=== PATIENT | female | born 1940 | race Caucasian/White ===

== ENCOUNTER 2019-10-07 15:19 | Emergency (ER) | payer MEDICARE, SELFPAY ==
[2019-10-07 15:28] VITALS: BP 148/65; PULSE 91; RESP 18; TEMP 36.8; O2SAT 98; BMI 31.8
--- NOTE | 2019-10-07 16:12 | ED_ITS ---
HPI - Extremity Problem <RYLAN Almaguer - Last Filed: 10/07/19 19:14> General Chief complaint: Extremity Problem,Nontraumatic Stated complaint: Cellulitis of legs Time Seen by Provider: 10/07/19 16:02 Source: patient and family Mode of arrival: Ambulatory Limitations: no limitations History of Present Illness HPI Narrative: The patient is a 78-year-old female nonsmoker with history of cellulitis, hepatitis-C, HCC, status post TACE who presents with a chief complaint of likely cellulitis. She is a nonsmoker presenting with her daughter. She states that she was recently in a hospital in [place] for over a week for cellulitis of her right lower leg. She states that she lives in [place], has been in town visiting her daughter. She does note that the redness starting coming back over the few days with some muscle aches and chills. No fevers. No nausea or vomiting. She states that she was on IV antibiotics and then discharged on other antibiotics. She is not sure what she was on. She is not sure what medication she takes. She knows she is not currently taking any antibiotics. She does state that she does not want to be admitted to the hospital, just wants oral antibiotics. She is adamant regarding this. Related Data Previous Rx's Medication Instructions Recorded cephalexin 500 mg PO QID 10 Days #40 cap 10/07/19 doxycycline hyclate 100 mg PO BID #20 cap 10/07/19 Allergies Allergy/AdvReac Type Severity Reaction Status Date / Time No Known Drug Allergies Allergy Verified 10/07/19 15:28 Review of Systems <RYLAN Almaguer - Last Filed: 10/07/19 19:14> Review of Systems Narrative: GENERAL: Denies chills, fatigue, malaise, fever, sweats. HEENT: Denies sinus pain, ear pain, sore throat, difficulty swallowing, dizziness. RESPIRATORY: Denies dyspnea, cough, wheezing, hemoptysis, sputum. CARDIOVASCULAR: Denies chest pain, palpitations, orthopnea, edema, GASTROINTESTINAL: Denies nausea, vomiting, abdominal pain, diarrhea, constipation, melena. : Denies dysuria, frequency, incontinence, hematuria, urinary retention. MUSCULOSKELETAL: See HPI SKIN: See HPI NEUROLOGIC: Denies weakness, headache, numbness, change in speech, confusion, seizures, incoordination. PSYCHIATRIC: No concerning psychosocial issues. 12 point review of systems is negative except for those stated above Patient History <RYLAN Almgauer - Last Filed: 10/07/19 19:14> Social History Smoking Status: Never smoker Smoking Status: Never smoker Substance Use Type: does not use Exam <RYLAN Almaguer - Last Filed: 10/07/19 19:14> Narrative Exam Narrative: GENERAL: This is a well-nourished, well-developed patient, in no acute distress HEAD: Atraumatic. Normocephalic. No temporal or scalp tenderness. EYES: Pupils equal round and reactive. Extraocular motions intact. No scleral icterus. No injection or drainage. ENT: Nose without bleeding, purulent drainage or septal hematoma. Wearing a mask. Airway patent. NECK: Trachea midline. No JVD or lymphadenopathy. Supple, nontender, no meningeal signs. CARDIOVASCULAR: Regular rate and rhythm. RESPIRATORY: Coarse to auscultation. Breath sounds equal bilaterally. No wheezes, rales, or rhonchi. GASTROINTESTINAL: Abdomen soft, non-tender, nondistended. No hepato- splenomegaly, or palpable masses. No guarding. EXTREMITIES: Skin exam as noted. Right pedal pulses intact. Plus two bilateral feet pitting edema. BACK: Nontender without deformity or crepitance. No flank tenderness. NEURO: AOx3. SKIN: Erythema extending up right lower leg to just distal to right knee, warmth to palpation. Initial Vital Signs Initial Vital Signs: Vital Signs Temperature 98.2 F 10/07/19 15:28 Pulse Rate 91 H 10/07/19 15:28 Respiratory Rate 18 10/07/19 15:28 Blood Pressure 148/65 H 10/07/19 15:28 Pulse Oximetry 98 10/07/19 15:28 <Radha Vitale MD - Last Filed: 10/08/19 08:33> Initial Vital Signs Initial Vital Signs: Vital Signs Temperature 98.2 F 10/07/19 15:28 Pulse Rate 91 H 10/07/19 15:28 Respiratory Rate 18 10/07/19 15:28 Blood Pressure 148/65 H 10/07/19 15:28 Pulse Oximetry 98 10/07/19 15:28 Scores <RYLAN Almaguer - Last Filed: 10/07/19 19:14> GCS [place] coma scale eye opening: Spontaneous Anshul coma scale verbal response: Orientated Anshul coma scale motor response: Obey commands Anshul coma scale total score: 15 Course <EVER Almaguer- - Last Filed: 10/07/19 19:14> Orders Ordered: Discontinued Medications Sodium Chloride (Normal Saline 0.9%) 1,000 mls @ 250 mls/hr IV CONT [facility] Last Admin: 10/07/19 16:44 Dose: 250 mls/hr Documented by: CVANCE Ceftriaxone Sodium/Dextrose (Rocephin) 2 gm in 50 mls @ 100 mls/hr IV NOW ONE Stop: 10/07/19 18:26 Last Admin: 10/07/19 18:18 Dose: 100 mls/hr Documented by: CVANCE Morphine Sulfate (Morphine) 4 mg IV NOW ONE Stop: 10/07/19 16:13 Last Admin: 10/07/19 16:45 Dose: 4 mg Documented by: CVANCE Ondansetron HCl (Zofran) 4 mg IV NOW ONE Stop: 10/07/19 16:13 Last Admin: 10/07/19 16:44 Dose: 4 mg Documented by: CVANCE Vital Signs Vital signs: Vital Signs - 8 hr 10/07/19 15:28 10/07/19 18:00 Temperature 98.2 F Pulse Rate 91 H Respiratory Rate 18 Blood Pressure 148/65 H 120/59 L Pulse Oximetry 98 96 <Radha Vitale MD - Last Filed: 10/08/19 08:33> Orders Ordered: Discontinued Medications Sodium Chloride (Normal Saline 0.9%) 1,000 mls @ 250 mls/hr IV CONT [facility] Last Admin: 10/07/19 16:44 Dose: 250 mls/hr Documented by: CVANCE Ceftriaxone Sodium/Dextrose (Rocephin) 2 gm in 50 mls @ 100 mls/hr IV NOW ONE Stop: 10/07/19 18:26 Last Admin: 10/07/19 18:18 Dose: 100 mls/hr Documented by: CVANCE Morphine Sulfate (Morphine) 4 mg IV NOW ONE Stop: 10/07/19 16:13 Last Admin: 10/07/19 16:45 Dose: 4 mg Documented by: CVANCE Ondansetron HCl (Zofran) 4 mg IV NOW ONE Stop: 10/07/19 16:13 Last Admin: 10/07/19 16:44 Dose: 4 mg Documented by: CVANCE Vital Signs Vital signs: Vital Signs - 8 hr 10/07/19 15:28 10/07/19 18:00 Temperature 98.2 F Pulse Rate 91 H Respiratory Rate 18 Blood Pressure 148/65 H 120/59 L Pulse Oximetry 98 96 MDM - Extremity (Nontraumatic) <BELKIS AlmaguerP- - Last Filed: 10/07/19 19:14> Lab Data Attestation: I reviewed the patient's lab results. Result diagrams: 10/07/19 16:29 10/07/19 16:29 Labs: Lab Results 10/07/19 10/07/19 10/07/19 Range/Units 16:29 16:29 16:29 WBC 6.0 (4.5-11.0) X10^3/uL RBC 3.66 L (4.0-5.2) X10^6/uL Hgb 10.8 L (12.0-16.0) g/dL Hct 32.8 L (36-46) % MCV 89.5 (80-100) fL MCH 29.4 (26-34) PG MCHC 32.9 (30-36) % RDW 15.1 H (11.6-14.8) % Plt Count 82 L (150-400) X10^3/uL Neut % (Auto) 74.0 (50-75) % Lymph % (Auto) 13.5 L (25-40) % [place] % (Auto) 11.4 (3-14) % Eos % (Auto) 0.7 L (2-4) % Baso % (Auto) 0.4 (0-2) % Neut # (Auto) 4400 (6848-6845) /uL Lymph # (Auto) 800 L (4219-7559) /uL [place] # (Auto) 700 (0-900) /uL Eos # (Auto) 0 (0-450) /uL Baso # (Auto) 0 (0-100) /uL PT 15.1 H (10.1-12.7) SECONDS INR 1.3 (0.9-1.3) APTT 33 (26.4-36.2) SECONDS Sodium (137-145) mmol/L Potassium (3.4-5.1) mmol/L Chloride (98-107) mmol/L Carbon Dioxide (22-32) mmol/L BUN (7-17) mg/dL Creatinine (0.52-1.04) mg/dL Estimated GFR (>60) mL/min BUN/Creatinine Ratio (6-22) Glucose (80-110) mg/dL Lactate (0.7-2.1) mmol/L Calcium (8.4-10.2) mg/dL Magnesium (1.6-2.3) mg/dL Total Bilirubin (0.2-1.3) mg/dL AST (14-36) IU/L ALT (<35) IU/L Alkaline Phosphatase (38-126) U/L Total Protein (6.3-8.2) g/dL Albumin (3.5-5.0) g/dL Globulin (1.7-4.1) g/dL Albumin/Globulin Ratio (1.0-2.8) Procalcitonin < 0.05 (<0.5) ng/mL 10/07/19 10/07/19 Range/Units 16:29 16:29 WBC (4.5-11.0) X10^3/uL RBC (4.0-5.2) X10^6/uL Hgb (12.0-16.0) g/dL Hct (36-46) % MCV (80-100) fL MCH (26-34) PG MCHC (30-36) % RDW (11.6-14.8) % Plt Count (150-400) X10^3/uL Neut % (Auto) (50-75) % Lymph % (Auto) (25-40) % [place] % (Auto) (3-14) % Eos % (Auto) (2-4) % Baso % (Auto) (0-2) % Neut # (Auto) (0177-5748) /uL Lymph # (Auto) (0851-9251) /uL [place] # (Auto) (0-900) /uL Eos # (Auto) (0-450) /uL Baso # (Auto) (0-100) /uL PT (10.1-12.7) SECONDS INR (0.9-1.3) APTT (26.4-36.2) SECONDS Sodium 135 L (137-145) mmol/L Potassium 3.9 (3.4-5.1) mmol/L Chloride 102 (98-107) mmol/L Carbon Dioxide 24 (22-32) mmol/L BUN 26 H (7-17) mg/dL Creatinine 1.12 H (0.52-1.04) mg/dL Estimated GFR 46.9 L (>60) mL/min BUN/Creatinine Ratio 23.2 H (6-22) Glucose 104 (80-110) mg/dL Lactate 1.4 (0.7-2.1) mmol/L Calcium 8.7 (8.4-10.2) mg/dL Magnesium 1.6 (1.6-2.3) mg/dL Total Bilirubin 1.3 (0.2-1.3) mg/dL AST 33 (14-36) IU/L ALT 20 (<35) IU/L Alkaline Phosphatase 109 (38-126) U/L Total Protein 6.8 (6.3-8.2) g/dL Albumin 3.6 (3.5-5.0) g/dL Globulin 3.2 (1.7-4.1) g/dL Albumin/Globulin Ratio 1.1 (1.0-2.8) Procalcitonin (<0.5) ng/mL Imaging Data US - DVT: Radiologist's Impression: [address] [place] [id number] Ultrasound Report Signed Patient: Viji Templeton#: [id number] : 1940Acct:[id number] Age/Sex: 78 / FDate of Service: 10/07/19 Loc: ED Accession Number: [id number] Procedure: US periph venous low extrem rt Ordering Provider: Kandace Cortez PROCEDURE: US PERIPH VENOUS LOW EXTREM RT INDICATIONS: pain, swelling, erythema TECHNIQUE: Real-time imaging, as well as color and pulse Doppler interrogation, were performed of the lower extremity deep veins from the inguinal ligament to the popliteal fossa. COMPARISON: None. FINDINGS: The common femoral, femoral and popliteal veins are normally compressible, and free of intraluminal thrombus. Color and pulse Doppler demonstrate normal phasic intraluminal flow. There is normal augmentation response to distal compression maneuver. IMPRESSION: No DVT in the right lower extremity. Dictated by: Valentina Ellis M.D. on 10/07/2019 at 17:35 Approved by: Valentina Ellis M.D. on 10/07/2019 at 17:36 MDM Narrative Medical decision making narrative: The patient is a 78-year-old female who presents with a chief complaint of a red painful right lower leg. She was recently admitted to a hospital in [place] for cellulitis. She denies any signs of systemic illness, though admits that she was on an IV antibiotics for over a week and is concerned about recurrence of cellulitis. It is concerning especially given that she was a currently septic upon arrival to the previous hospital. Given her immobility, I did do an ultrasound to rule out DVT in the skin negative. She has no acute signs of systemic illness, is afebrile in the emergency department, normal lactate, negative procalcitonin. However it is very concerning as the patient has recently been on several IV antibiotics for prolonged period and is already having recurrence of her infection. The patient presents with her daughter and she is adamant about not coming into the hospital. I did discuss that she is at high risk of decompensation, and that I recommended she come into the hospital for further IV antibiotics. The patient adamantly declined this, and signed out against medical advice. I did discuss with her and ROSANGELA Donovan was witness that she is at high risk of decompensation, organ failure, subsequent especially given her multiple comorbidities. The patient is understanding of this, states she will come back to the emergency department for any acute concerns including fever, no believe down fluids or antibiotics. She was given IV Rocephin and started on cephalexin and doxycycline in the emergency department today. The patient left against medical advice but states she will come back if she gets worse. The patient has full understanding of my desire to admit her, as well as her risk of leaving against medical advice. The patient is GCS 15 throughout her stay in the emergency department. <Radha Vitale MD - Last Filed: 10/08/19 08:33> Lab Data Labs: Lab Results 10/07/19 10/07/19 10/07/19 Range/Units 16:29 16:29 16:29 WBC 6.0 (4.5-11.0) X10^3/uL RBC 3.66 L (4.0-5.2) X10^6/uL Hgb 10.8 L (12.0-16.0) g/dL Hct 32.8 L (36-46) % MCV 89.5 (80-100) fL MCH 29.4 (26-34) PG MCHC 32.9 (30-36) % RDW 15.1 H (11.6-14.8) % Plt Count 82 L (150-400) X10^3/uL Neut % (Auto) 74.0 (50-75) % Lymph % (Auto) 13.5 L (25-40) % [place] % (Auto) 11.4 (3-14) % Eos % (Auto) 0.7 L (2-4) % Baso % (Auto) 0.4 (0-2) % Neut # (Auto) 4400 (1843-2556) /uL Lymph # (Auto) 800 L (3925-4499) /uL [place] # (Auto) 700 (0-900) /uL Eos # (Auto) 0 (0-450) /uL Baso # (Auto) 0 (0-100) /uL PT 15.1 H (10.1-12.7) SECONDS INR 1.3 (0.9-1.3) APTT 33 (26.4-36.2) SECONDS Sodium (137-145) mmol/L Potassium (3.4-5.1) mmol/L Chloride (98-107) mmol/L Carbon Dioxide (22-32) mmol/L BUN (7-17) mg/dL Creatinine (0.52-1.04) mg/dL Estimated GFR (>60) mL/min BUN/Creatinine Ratio (6-22) Glucose (80-110) mg/dL Lactate (0.7-2.1) mmol/L Calcium (8.4-10.2) mg/dL Magnesium (1.6-2.3) mg/dL Total Bilirubin (0.2-1.3) mg/dL AST (14-36) IU/L ALT (<35) IU/L Alkaline Phosphatase (38-126) U/L Total Protein (6.3-8.2) g/dL Albumin (3.5-5.0) g/dL Globulin (1.7-4.1) g/dL Albumin/Globulin Ratio (1.0-2.8) Procalcitonin < 0.05 (<0.5) ng/mL 10/07/19 10/07/19 Range/Units 16:29 16:29 WBC (4.5-11.0) X10^3/uL RBC (4.0-5.2) X10^6/uL Hgb (12.0-16.0) g/dL Hct (36-46) % MCV (80-100) fL MCH (26-34) PG MCHC (30-36) % RDW (11.6-14.8) % Plt Count (150-400) X10^3/uL Neut % (Auto) (50-75) % Lymph % (Auto) (25-40) % [place] % (Auto) (3-14) % Eos % (Auto) (2-4) % Baso % (Auto) (0-2) % Neut # (Auto) (3661-7162) /uL Lymph # (Auto) (9057-5140) /uL [place] # (Auto) (0-900) /uL Eos # (Auto) (0-450) /uL Baso # (Auto) (0-100) /uL PT (10.1-12.7) SECONDS INR (0.9-1.3) APTT (26.4-36.2) SECONDS Sodium 135 L (137-145) mmol/L Potassium 3.9 (3.4-5.1) mmol/L Chloride 102 (98-107) mmol/L Carbon Dioxide 24 (22-32) mmol/L BUN 26 H (7-17) mg/dL Creatinine 1.12 H (0.52-1.04) mg/dL Estimated GFR 46.9 L (>60) mL/min BUN/Creatinine Ratio 23.2 H (6-22) Glucose 104 (80-110) mg/dL Lactate 1.4 (0.7-2.1) mmol/L Calcium 8.7 (8.4-10.2) mg/dL Magnesium 1.6 (1.6-2.3) mg/dL Total Bilirubin 1.3 (0.2-1.3) mg/dL AST 33 (14-36) IU/L ALT 20 (<35) IU/L Alkaline Phosphatase 109 (38-126) U/L Total Protein 6.8 (6.3-8.2) g/dL Albumin 3.6 (3.5-5.0) g/dL Globulin 3.2 (1.7-4.1) g/dL Albumin/Globulin Ratio 1.1 (1.0-2.8) Procalcitonin (<0.5) ng/mL Discharge Plan Departure Patient Disposition: Left Against Medical Advice Clinical Impression: Cellulitis Qualifiers: Site of cellulitis: extremity Site of cellulitis of extremity: lower extremity Laterality: right Qualified Code(s): L03.115 - Cellulitis of right lower limb Discharge Date/Time: 10/07/19 18:50 Instructions: DI for Cellulitis -- Adult Activity Restrictions/Additional Instructions: Thank you for trusting us with your care today. As I discussed, I want to due to come into the hospital. You have elected to leave against medical advice. However am sending him prescriptions for you to [facility]. I sent 2 prescriptions of antibiotics to [facility]. Please take them with probiotic or yogurt to help prevent associated diarrhea. Please come back to the emergency department for any acute concerns, especially if you get worse, have high fevers, can not keep down fluids etcetera Please follow-up with primary care provider as soon as you get back to your home. Prescriptions: New cephalexin 500 mg capsule 500 mg PO QID 10 Days Qty: 40 RF: 0 doxycycline hyclate 100 mg capsule 100 mg PO BID Qty: 20 RF: 0 Stand Alone Forms: Against Medical Advice <Radha Vitale MD - Last Filed: 10/08/19 08:33> [facility] Attestation: I was immediately available in the department for consultation throughout this patient's visit. I agree with documentation as above. Radha Vitale MD
[2019-10-07 16:37] LABS: Add Manual Diff / Slide Review NO; Basophils Absolute Auto 0 /uL (0-100); Basophils Percent Auto 0.4 % (0-2); Eosinophils Absolute Auto 0 /uL (0-450); Eosinophils Percent Auto 0.7 % (2-4); Hematocrit 32.8 % (36-46); Hemoglobin 10.8 g/dL (12.0-16.0); Lymphocytes Absolute Auto 800 /uL (1100-4500); Lymphocytes Percent Auto 13.5 % (25-40); Mean Corpuscular HGB Conc 32.9 % (30-36); Mean Corpuscular Hemoglobin 29.4 PG (26-34); Mean Corpuscular Volume 89.5 fL (80-100); Monocytes Absolute Auto 700 /uL (0-900); Monocytes Percent Auto 11.4 % (3-14); Neutrophils Absolute Auto 4400 /uL (1500-7000); Platelet Count 82 X10^3/uL (150-400); Red Blood Cell Count 3.66 X10^6/uL (4.0-5.2); Red Cell Distribution Width 15.1 % (11.6-14.8)
[2019-10-07 16:44] LABS: INR 1.3 (0.9-1.3); Prothrombin Time 15.1 SECONDS (10.1-12.7)
[2019-10-07] MEDS: ONDANSETRON 4 MG/2 ML INJ IV (16:44)
[2019-10-07] MEDS: SODIUM CHLORIDE 0.9% 1,000 ML 250 ML IV (16:44)
[2019-10-07] MEDS: MORPHINE 4 MG/ML INJ IV (16:45)
[2019-10-07 16:47] LABS: PTT Partial Thromboplastin Tim 33 SECONDS (26.4-36.2)
[2019-10-07 17:08] LABS: Procalcitonin < 0.05 ng/mL (<0.5)
[2019-10-07 17:20] LABS: Alanine Aminotransferase 20 IU/L (<35); Albumin 3.6 g/dL (3.5-5.0); Albumin Globulin Ratio 1.1 (1.0-2.8); Alkaline Phosphatase 109 U/L (38-126); Aspartate Aminotransferase 33 IU/L (14-36); BUN Creatinine Ratio 23.2 (6-22); Bilirubin Total 1.3 mg/dL (0.2-1.3); Blood Urea Nitrogen 26 mg/dL (7-17); Calcium 8.7 mg/dL (8.4-10.2); Carbon Dioxide 24 mmol/L (22-32); Chloride 102 mmol/L (98-107); Estimated Glomerular Filt Rate 46.9 mL/min (>60); Globulin 3.2 g/dL (1.7-4.1); Glucose 104 mg/dL (80-110); HEMOLYSIS 29 (0-50); Magnesium 1.6 mg/dL (1.6-2.3); Potassium 3.9 mmol/L (3.4-5.1); Sodium 135 mmol/L (137-145); Total Protein 6.8 g/dL (6.3-8.2)
[2019-10-07 17:35] LABS: Lactate (Lactic Acid) 1.4 mmol/L (0.7-2.1)
[2019-10-07 18:00] VITALS: BP 120/59; O2SAT 96
[2019-10-07] MEDS: CEFTRIAXONE 2 GM/50 ML FROZ.PIGGY IV (18:18)
[2019-10-07 18:50] VITALS: BP 120/67; PULSE 84; O2SAT 94
--- NOTE | 2019-10-24 11:59 | PC.NURSE ---
addendum: IV stop time for this patient was 1830 with 300cc infused.
== END 2019-10-07 18:50 | disposition left against medical advice (07) ==
PROVIDERS: Emergency Provider Nurse Practitioner Family
DX: L03.115 Cellulitis of right lower limb (principal); R76.8 Other specified abnormal immunological findings in serum
CPT/HCPCS: 36415; 80053; 83605; 83735; 84145; 85025; 85610; 85730; 87040; 93971; 96361; 96374; 96375; 99284; J0696; J2270; J2405

== ENCOUNTER 2019-10-08 10:02 | Inpatient (IN) | payer MEDICARE, SELFPAY ==
[2019-10-08] VITALS (10 sets, daily range): BP systolic 104–137; BP diastolic 45–68; PULSE 58–91; RESP 18–20; TEMP 36.9–37.3; O2SAT 87–98; BMI 24.8
--- NOTE | 2019-10-08 10:24 | ED.GENADULT ---
HPI - General Adult General Chief complaint: Skin/Abscess/Foreign Body Stated complaint: CELLULITIS IN LEG Time Seen by Provider: 10/08/19 10:22 History of Present Illness HPI narrative: 78-year-old woman presents today with increasing pain and willing to consider hospital admission after being seen last night with the following complaints: The patient is a 78-year-old female nonsmoker with history of cellulitis, hepatitis-C, HCC, status post TACE who presents with a chief complaint of likely cellulitis. She is a nonsmoker presenting with her daughter. She states that she was recently in a hospital in [place] for over a week for cellulitis of her right lower leg. She states that she lives in [place], has been in town visiting her daughter. She does note that the redness starting coming back over the few days with some muscle aches and chills. No fevers. No nausea or vomiting. She states that she was on IV antibiotics and then discharged on other antibiotics. She is not sure what she was on. She is not sure what medication she takes. She knows she is not currently taking any antibiotics. She does state that she does not want to be admitted to the hospital, just wants oral antibiotics. She is adamant regarding this. ANIBAL Talavera In the ER last night, she was given a dose of IV Rocephin and discharged home with Keflex and doxycycline with instructions to return if she was worse. Related Data Home Medications Medication Instructions Recorded Confirmed amlodipine 10 mg PO DAILY 10/08/19 10/08/19 cyclobenzaprine 5 mg PO BEDTIME PRN 10/08/19 10/08/19 furosemide 20 mg PO DAILY 10/08/19 10/08/19 lisinopril 20 mg PO DAILY 10/08/19 10/08/19 melatonin 10 mg PO BEDTIME PRN 10/08/19 10/08/19 omeprazole 20 mg PO DAILY 10/08/19 10/08/19 ropinirole 2 mg PO BEDTIME 10/08/19 10/08/19 Previous Rx's Medication Instructions Recorded cephalexin 500 mg PO QID 10 Days #40 cap 10/07/19 doxycycline hyclate 100 mg PO BID #20 cap 10/07/19 Allergies Allergy/AdvReac Type Severity Reaction Status Date / Time No Known Drug Allergies Allergy Verified 10/07/19 15:28 Review of Systems Review of Systems Narrative: Pertinent positive and negative findings as per HPI Remainder of review of systems is otherwise unremarkable for Constitutional: Fevers, chills, weakness ENT: No sore throat, neck pain, ear pain CV: Chest pain, palpitations, dyspnea on exertion Respiratory: Cough, wheeze, dyspnea GI: Nausea, vomiting, diarrhea, change in bowel habits, black or bloody stools : Dysuria, hematuria, flank pain Neuro: Syncope, dizziness, tingling Patient History Medical History (Updated 10/08/19 @ 15:53 by Yu Cohen MD) Chronic acquired lymphedema (Acute) Gastroesophageal reflux disease (Acute) Hypertension (Acute) Restless leg syndrome (Acute) Surgical History (Updated 10/08/19 @ 15:53 by Yu Cohen MD) History of bilateral knee replacement (Acute) History of cholecystectomy (Acute) Family History (Updated 10/08/19 @ 15:53 by Yu Cohen MD) Brother Colorectal cancer Social History household members: none Smoking Status: Never smoker alcohol intake: current Smoking Status: Never smoker Substance Use Type: does not use Exam Narrative Exam Narrative: General: Healthy appearing, in no acute distress. Able to give a complete and coherent history. Well-nourished well-developed HEENT: Moist mucous membranes, normal sclera with reactive pupils, Neck: No JVD, supple Respiratory: Lungs are clear to auscultation, no wheezing no rales no rhonchi. Full and symmetrical air movement Cardiac: Regular rate and rhythm no murmurs no bruits Abdomen: Soft nontender good bowel tones, no flank pain Skin: Bilateral chronic venous stasis changes in the lower extremities with increased erythema and warmth to the right lower extremity Neurologic: Grossly neurologically intact with no obvious asymmetries or abnormalities Extremities: No trauma, chronic lymphedema with right greater than left, good palpable distal pulses Psych: Cooperative, appropriate insight and affect Initial Vital Signs Initial Vital Signs: Vital Signs Temperature 98.4 F 10/08/19 10:10 Pulse Rate 65 10/08/19 10:10 Respiratory Rate 18 10/08/19 10:10 Blood Pressure 125/68 10/08/19 10:10 Pulse Oximetry 96 10/08/19 10:10 Course Orders Ordered: ED Orders 10/11/19 13:00 Vancomycin Trough Urgent Acetaminophen (Tylenol) 650 mg PO Q6HR PRN PRN Reason: Fever/Mild Pain (1-3) Hydrocodone Bitart/Acetaminophen ([place] 5/325) 1 tab PO Q4HR PRN PRN Reason: Pain, Moderate (4-6) Amlodipine Besylate (Norvasc) 10 mg PO DAILY [facility] Bisacodyl (Dulcolax) 10 mg DE DAILY PRN PRN Reason: Constipation Cyclobenzaprine HCl (Flexeril) 10 mg PO Q8HR PRN PRN Reason: Spasms Docusate Sodium (Colace) 100 mg PO BID [facility] Last Admin: 10/08/19 20:31 Dose: 100 mg Documented by: CANDELARIA Enoxaparin Sodium (Lovenox) 40 mg SUBCUT DAILY [facility] Vancomycin HCl (Vancomycin) 1,000 mg in 200 mls @ 200 mls/hr IV Q24H [facility] Last Infusion: 10/08/19 15:00 Dose: 0 mls/hr Documented by: Admin: 10/08/19 13:58 Dose: 200 mls/hr Documented by: JEREMÍAS Dextrose/Sodium Chloride (Dextrose 5%-0.45% Ns) 1,000 mls @ 100 mls/hr IV CONT [facility] Last Admin: 10/09/19 03:38 Dose: 100 mls/hr Documented by: Infusion: 10/09/19 03:14 Dose: 100 mls/hr Documented by: Admin: 10/08/19 17:14 Dose: 100 mls/hr Documented by: CANDELARIA Ceftriaxone Sodium/Dextrose (Rocephin) 1 gm in 50 mls @ 100 mls/hr IV Q24H [facility] Lisinopril (Zestril) 20 mg PO DAILY [facility] Magnesium Hydroxide (Milk Of Magnesia) 30 ml PO DAILY PRN PRN Reason: Constipation Melatonin (Melatonin) 9 mg PO BEDTIME [facility] Last Admin: 10/08/19 20:31 Dose: 9 mg Documented by: CANDELARIA Morphine Sulfate (Morphine) 2 mg IV Q4HR PRN PRN Reason: Pain, Moderate (4-6) Naloxone HCl (Narcan) 0.2 mg IV Q2MIN PRN PRN Reason: Opiate Reversal Stored In Pharmacy 0 each PO PRN PRN PRN Reason: . Ondansetron HCl (Zofran) 4 mg IV Q8HR PRN PRN Reason: Nausea And Vomiting Pantoprazole Sodium (Protonix) 20 mg PO 0700 [facility] Last Admin: 10/09/19 06:20 Dose: 20 mg Documented by: BRIGIDA Ropinirole HCl (Requip) 2 mg PO BEDTIME [facility] Last Admin: 10/08/19 20:36 Dose: 2 mg Documented by: CANDELARIA Terbinafine HCl (Lamisil) 250 mg PO DAILY [facility] Vancomycin HCl (Vancomycin Trough) 1 request MISC NOW ONE Stop: 10/11/19 13:01 Discontinued Medications Furosemide (Lasix) 20 mg PO DAILY [facility] Hydromorphone HCl (Dilaudid) 0.5 mg IV NOW ONE Stop: 10/08/19 10:29 Last Admin: 10/08/19 10:44 Dose: 0.5 mg Documented by: RASHAAD Sodium Chloride (Normal Saline 0.9%) 1,000 mls @ 1,000 mls/hr IV BOLUS ONE Stop: 10/08/19 11:27 Last Admin: 10/08/19 10:44 Dose: 1,000 mls/hr Documented by: RASHAAD Ceftriaxone Sodium/Dextrose (Rocephin) 2 gm in 50 mls @ 100 mls/hr IV NOW ONE Stop: 10/08/19 13:31 Last Infusion: 10/08/19 13:58 Dose: 0 mls/hr Documented by: Admin: 10/08/19 13:13 Dose: 100 mls/hr Documented by: JEREMÍAS Vancomycin HCl (Vancomycin) 1,000 mg in 200 mls @ 200 mls/hr IV Q24H [facility] Last Admin: 10/08/19 17:34 Dose: Not Given Documented by: CANDELARIA Ketorolac Tromethamine (Toradol) 15 mg IV NOW ONE Stop: 10/08/19 10:29 Last Admin: 10/08/19 10:43 Dose: 15 mg Documented by: RASHAAD Vancomycin HCl (Vancomycin Per Pharmacy) 1 request MISC NOW ONE Stop: 10/08/19 13:03 Last Admin: 10/08/19 20:30 Dose: Not Given Documented by: CANDELARIA Vancomycin HCl (Vancomycin Per Pharmacy) 1 request MISC NOW ONE Stop: 10/08/19 15:46 Last Admin: 10/08/19 17:34 Dose: Not Given Documented by: CANDELARIA Vital Signs Vital signs: Vital Signs - 8 hr 10/08/19 10:10 10/08/19 11:07 10/08/19 11:30 Temperature 98.4 F Pulse Rate 65 59 L 64 Respiratory Rate 18 Blood Pressure 125/68 Pulse Oximetry 96 97 95 10/08/19 12:00 Temperature Pulse Rate 63 Respiratory Rate Blood Pressure Pulse Oximetry 98 Medical Decision Making Lab Data Result diagrams: 10/09/19 04:30 10/09/19 04:30 Labs: Lab Results 10/08/19 10/08/19 10/08/19 Range/Units 10:58 10:58 10:58 WBC 7.2 (4.5-11.0) X10^3/uL RBC 3.66 L (4.0-5.2) X10^6/uL Hgb 11.0 L (12.0-16.0) g/dL Hct 32.8 L (36-46) % MCV 89.5 (80-100) fL MCH 29.9 (26-34) PG MCHC 33.4 (30-36) % RDW 15.0 H (11.6-14.8) % Plt Count 80 L (150-400) X10^3/uL Neut % (Auto) 77.5 H (50-75) % Lymph % (Auto) 9.4 L (25-40) % [place] % (Auto) 10.4 (3-14) % Eos % (Auto) 2.3 (2-4) % Baso % (Auto) 0.4 (0-2) % Neut # (Auto) 5500 (0459-7656) /uL Lymph # (Auto) 700 L (0174-5848) /uL [place] # (Auto) 700 (0-900) /uL Eos # (Auto) 200 (0-450) /uL Baso # (Auto) 0 (0-100) /uL Sodium 135 L (137-145) mmol/L Potassium 3.6 (3.4-5.1) mmol/L Chloride 102 (98-107) mmol/L Carbon Dioxide 27 (22-32) mmol/L BUN 23 H (7-17) mg/dL Creatinine 1.11 H (0.52-1.04) mg/dL Estimated GFR 47.4 L (>60) mL/min BUN/Creatinine Ratio 20.7 (6-22) Glucose 98 (80-110) mg/dL Lactate 1.1 (0.7-2.1) mmol/L Calcium 8.6 (8.4-10.2) mg/dL Total Bilirubin 1.4 H (0.2-1.3) mg/dL AST 30 (14-36) IU/L ALT 19 (<35) IU/L Alkaline Phosphatase 121 (38-126) U/L Total Protein 7.0 (6.3-8.2) g/dL Albumin 3.7 (3.5-5.0) g/dL Globulin 3.3 (1.7-4.1) g/dL Albumin/Globulin Ratio 1.1 (1.0-2.8) COVID-19 PCR (Negative) 10/08/19 Range/Units 14:22 WBC (4.5-11.0) X10^3/uL RBC (4.0-5.2) X10^6/uL Hgb (12.0-16.0) g/dL Hct (36-46) % MCV (80-100) fL MCH (26-34) PG MCHC (30-36) % RDW (11.6-14.8) % Plt Count (150-400) X10^3/uL Neut % (Auto) (50-75) % Lymph % (Auto) (25-40) % [place] % (Auto) (3-14) % Eos % (Auto) (2-4) % Baso % (Auto) (0-2) % Neut # (Auto) (5732-2352) /uL Lymph # (Auto) (8288-3314) /uL [place] # (Auto) (0-900) /uL Eos # (Auto) (0-450) /uL Baso # (Auto) (0-100) /uL Sodium (137-145) mmol/L Potassium (3.4-5.1) mmol/L Chloride (98-107) mmol/L Carbon Dioxide (22-32) mmol/L BUN (7-17) mg/dL Creatinine (0.52-1.04) mg/dL Estimated GFR (>60) mL/min BUN/Creatinine Ratio (6-22) Glucose (80-110) mg/dL Lactate (0.7-2.1) mmol/L Calcium (8.4-10.2) mg/dL Total Bilirubin (0.2-1.3) mg/dL AST (14-36) IU/L ALT (<35) IU/L Alkaline Phosphatase (38-126) U/L Total Protein (6.3-8.2) g/dL Albumin (3.5-5.0) g/dL Globulin (1.7-4.1) g/dL Albumin/Globulin Ratio (1.0-2.8) COVID-19 PCR Negative (Negative) Imaging Data Extremity ultrasound October 06: Radiologist's Impression: FINDINGS: The common femoral, femoral and popliteal veins are normally compressible, and free of intraluminal thrombus. Color and pulse Doppler demonstrate normal phasic intraluminal flow. There is normal augmentation response to distal compression maneuver. IMPRESSION: No DVT in the right lower extremity. Dictated by: Valentina Ellis M.D. on 10/07/2019 at 17:35 MDM Narrative Medical decision making narrative: 78-year-old woman with chronic lymphedema and recurrent cellulitis in the right lower extremity. Recently hospitalized in [place] with systems returning shortly after stopping antibiotics. She was seen last night and hospital admission was suggested but declined. Over the interval 12 hours her pain is increased significantly but she still has not complained of increasing fevers, rigors and there is no additional signs of sepsis. IV antibiotics are administered as is pain medication and she will be admitted for continued IV antibiotic for right lower extremity cellulitis complicated by lymphedema without any evidence of DVT. Discharge Plan Departure Patient Disposition: Admitted as Observation Clinical Impression: Lymph edema Cellulitis Qualifiers: Site of cellulitis: extremity Site of cellulitis of extremity: lower extremity Laterality: right Qualified Code(s): L03.115 - Cellulitis of right lower limb Discharge Date/Time: 10/08/19 15:54 Admit Date/Time: 10/08/19 14:25 Admit Provider: Yu Cohen
[2019-10-08] MEDS: KETOROLAC 60 MG/2 ML VIAL 15 MG IV (10:43)
[2019-10-08] MEDS: SODIUM CHLORIDE 0.9% 1,000 ML 1000 ML IV (10:44)
[2019-10-08] MEDS: HYDROMORPHONE 0.5 MG INJ IV (10:44)
[2019-10-08 11:09] LABS: Add Manual Diff / Slide Review NO; Basophils Absolute Auto 0 /uL (0-100); Basophils Percent Auto 0.4 % (0-2); Eosinophils Absolute Auto 200 /uL (0-450); Eosinophils Percent Auto 2.3 % (2-4); Hematocrit 32.8 % (36-46); Lymphocytes Absolute Auto 700 /uL (1100-4500); Lymphocytes Percent Auto 9.4 % (25-40); Mean Corpuscular HGB Conc 33.4 % (30-36); Mean Corpuscular Hemoglobin 29.9 PG (26-34); Mean Corpuscular Volume 89.5 fL (80-100); Monocytes Absolute Auto 700 /uL (0-900); Monocytes Percent Auto 10.4 % (3-14); Neutrophils Absolute Auto 5500 /uL (1500-7000); Neutrophils Percent Auto 77.5 % (50-75); Platelet Count 80 X10^3/uL (150-400); Red Blood Cell Count 3.66 X10^6/uL (4.0-5.2); White Blood Cell Count 7.2 X10^3/uL (4.5-11.0)
[2019-10-08 11:15] LABS: Lactate (Lactic Acid) 1.1 mmol/L (0.7-2.1)
[2019-10-08 11:16] LABS: Alanine Aminotransferase 19 IU/L (<35); Albumin 3.7 g/dL (3.5-5.0); Albumin Globulin Ratio 1.1 (1.0-2.8); Alkaline Phosphatase 121 U/L (38-126); Aspartate Aminotransferase 30 IU/L (14-36); BUN Creatinine Ratio 20.7 (6-22); Bilirubin Total 1.4 mg/dL (0.2-1.3); Blood Urea Nitrogen 23 mg/dL (7-17); Calcium 8.6 mg/dL (8.4-10.2); Carbon Dioxide 27 mmol/L (22-32); Chloride 102 mmol/L (98-107); Estimated Glomerular Filt Rate 47.4 mL/min (>60); Globulin 3.3 g/dL (1.7-4.1); Glucose 98 mg/dL (80-110); HEMOLYSIS < 15 (0-50); Potassium 3.6 mmol/L (3.4-5.1); Sodium 135 mmol/L (137-145)
[2019-10-08] MEDS: CEFTRIAXONE 2 GM/50 ML FROZ.PIGGY IV (13:13)
--- NOTE | 2019-10-08 13:19 | DI.RAD.S_ITS ---
PROCEDURE: XR TIBIA FUBULA RT 2V INDICATIONS: cellulitis, ? osteo TECHNIQUE: 2 views of the tibia and fibula were acquired. COMPARISON: None. FINDINGS: Bones: No fractures or dislocations. No suspicious bony lesions. Soft tissues: No suspicious soft tissue calcifications or masses. IMPRESSION: Although no bony erosions are identified, plain film radiography is relatively insensitive in the acute phases of osteomyelitis and may not demonstrate radiographic changes for 15 days. If acute osteomyelitis is of clinical concern, nuclear medicine regional bone scan or MRI is recommended. Dictated by: Ban Mendoza M.D. on 10/08/2019 at 12:58 Approved by: Ban Mendoza M.D. on 10/08/2019 at 12:58
[2019-10-08] MEDS: VANCOMYCIN 1,000 MG/200 ML PIGGYBACK 200 MG IV (13:58)
[2019-10-08 15:23] LABS: COVID19 -Nasal RAPID Negative (Negative)
--- NOTE | 2019-10-08 15:48 | PM.HP.1 ---
History of Present Illness History of Present Illness Date Patient Seen: 10/08/19 Chief complaint: CELLULITIS IN LEG Narrative: Patient is a 78-year-old female with a history of hepatocellular carcinoma currently undergoing chemotherapy, hepatitis-C, hypertension, GERD, restless leg syndrome, who has bilateral lower extremity chronic lymphedema. Patient reports she was hospitalized in [facility] where she lives 1 month ago for 1 week for right lower extremity cellulitis. She was doing well until 3 days ago when she developed redness swelling warmth of the right lower extremity. She was seen in the emergency room last night in given 1 dose of IV ceftriaxone. It was recommended that the patient be admitted to the hospital last evening however she was planning to return to [place] on Thursday and went home with oral antibiotics. She noted that the right leg is more swollen painful and red. She is unable to ambulate on the right lower extremity. She presented back to the emergency room for re-evaluation. In the emergency room the patient had a Doppler last evening which was negative for DVT. She had an x-ray this evening to rule out osteomyelitis. She was given a dose of ceftriaxone and vancomycin and admitted to the hospital for further evaluation. Patient denies any fever but reports chills. She has had no nausea or vomiting. She does report a 25 lb weight loss which occurred when she was hospitalized month ago. She says she has no appetite but notes her mouth is dry. In addition she denies any shortness of breath chest pain or fevers. She has no diarrhea. No nausea or vomiting. Patient History Medical History (Updated 10/08/19 @ 15:53 by Yu Cohen MD) Chronic acquired lymphedema (Acute) Gastroesophageal reflux disease (Acute) Hypertension (Acute) Restless leg syndrome (Acute) Surgical History (Updated 10/08/19 @ 15:53 by Yu Cohen MD) History of bilateral knee replacement (Acute) History of cholecystectomy (Acute) Family & Social History Family History (Updated 10/08/19 @ 15:53 by Yu Cohen MD) Brother Colorectal cancer Safety & Behavioral: Feels Safe in Current Yes Environment Been Physically Hurt or No Threatened By a Person Tobacco & Substance use: Smoking Status Never smoker alcohol intake frequency 0-2 drinks per day Substance Use Type does not use Meds Home Medications and Allergies Home Medications Medication Instructions Recorded Confirmed Type cephalexin 500 mg PO QID 10 Days #40 cap 10/07/19 Rx doxycycline hyclate 100 mg PO BID #20 cap 10/07/19 Rx Allergies Allergy/AdvReac Type Severity Reaction Status Date / Time No Known Drug Allergies Allergy Verified 10/07/19 15:28 Review of Systems Review of Systems ROS: Yes All systems reviewed with the patient and are negative except as otherwise documented Exam Vital Signs (past 8 hours): - 10/08/19 10:10 10/08/19 11:07 10/08/19 11:30 Temperature 98.4 F Pulse Rate 65 59 L 64 Respiratory Rate 18 Blood Pressure 125/68 Pulse Oximetry 96 97 95 10/08/19 12:00 10/08/19 12:30 10/08/19 13:00 Temperature Pulse Rate 63 58 L 72 Respiratory Rate Blood Pressure Pulse Oximetry 98 98 97 10/08/19 13:16 10/08/19 13:18 Temperature Pulse Rate 60 62 Respiratory Rate Blood Pressure 104/51 L 113/51 L Pulse Oximetry 87 L 92 Oxygen Delivery Method Room Air Narrative Exam Narrative: Pleasant female resting comfortably in no acute distress HEENT: Normocephalic atraumatic extraocular muscles are intact oropharynx reveals dry mucous membranes neck is supple without adenopathy Lungs: Clear to auscultation Cardiac exam regular rate and rhythm normal S1-S2 with a 2/6 systolic ejection Abdomen: Soft nontender nondistended without appreciable hepatosplenomegaly patient is somewhat of the Extremities: Right lower extremity with 3+ lymphedema, multiple surgical scars noted around the knees, right lower extremity with warmth tenderness to palpation but no open lesions noted Both feet reveal deformities of the 2nd digits Neuro exam is nonfocal Objective Labs Result Diagrams: 10/08/19 10:58 10/08/19 10:58 Labs: Laboratory Results - last 24 hr 10/08/19 10/08/19 10/08/19 10:58 10:58 10:58 WBC 7.2 RBC 3.66 L Hgb 11.0 L Hct 32.8 L MCV 89.5 MCH 29.9 MCHC 33.4 RDW 15.0 H Plt Count 80 L Neut % (Auto) 77.5 H Lymph % (Auto) 9.4 L [place] % (Auto) 10.4 Eos % (Auto) 2.3 Baso % (Auto) 0.4 Neut # (Auto) 5500 Lymph # (Auto) 700 L [place] # (Auto) 700 Eos # (Auto) 200 Baso # (Auto) 0 Sodium 135 L Potassium 3.6 Chloride 102 Carbon Dioxide 27 BUN 23 H Creatinine 1.11 H Estimated GFR 47.4 L BUN/Creatinine Ratio 20.7 Glucose 98 Lactate 1.1 Calcium 8.6 Total Bilirubin 1.4 H AST 30 ALT 19 Alkaline Phosphatase 121 Total Protein 7.0 Albumin 3.7 Globulin 3.3 Albumin/Globulin Ratio 1.1 COVID-19 PCR 10/08/19 14:22 WBC RBC Hgb Hct MCV MCH MCHC RDW Plt Count Neut % (Auto) Lymph % (Auto) [place] % (Auto) Eos % (Auto) Baso % (Auto) Neut # (Auto) Lymph # (Auto) [place] # (Auto) Eos # (Auto) Baso # (Auto) Sodium Potassium Chloride Carbon Dioxide BUN Creatinine Estimated GFR BUN/Creatinine Ratio Glucose Lactate Calcium Total Bilirubin AST ALT Alkaline Phosphatase Total Protein Albumin Globulin Albumin/Globulin Ratio COVID-19 PCR Negative Assessment & Plan Assessment & Plan narrative: Impression 1. 78-year-old female admitted to the hospital with recurrent cellulitis -patient with chronic lymphedema and recent admission for cellulitis -deformity of the right foot and by her report osteomyelitis likely risk factor -agree with IV antibiotics to include ceftriaxone and vancomycin -will continue with leg elevation -patient would benefit from going to the lymphedema clinic 2. Hypertension -continue amlodipine and lisinopril -given patient's weight loss dehydration will discontinue Lasix for now -will start gentle IV hydration 3. Restless leg syndrome -continue ropinirole and cyclobenzaprine as needed 4. Hepatocellular carcinoma -patient currently undergoing chemotherapy 5. Hepatitis-C 6. Gastroesophageal reflux disease -will continue PPI 7. Severe protein calorie malnutrition -patient reports a 25 lb weight loss during her last hospitalization a month ago. She also notes no appetite. -will ask for dietary consultation Patient lives in [facility] anticipate discharge home. She has canceled her flight from Thursday and is able to stay as long as needed to complete treat Patient will be placed on DVT prophylaxis. Patient's daughter is her surrogate here in [place]. Patient reports she is a full code and will note that her record accordingly
[2019-10-08] MEDS: DEXTROSE 5%-0.45% NS 1,000 ML 100 ML IV (17:14)
[2019-10-08] MEDS: MELATONIN 3 MG TABLET 9 MG PO (20:31)
[2019-10-08] MEDS: DOCUSATE 100 MG CAPSULE PO (20:31)
[2019-10-08] MEDS: ROPINIROLE 1 MG TABLET 2 MG PO (20:36)
[2019-10-09] VITALS (8 sets, daily range): BP systolic 97–120; BP diastolic 44–70; PULSE 63–94; RESP 16–20; TEMP 36.2–37.4; O2SAT 93–97
[2019-10-09] MEDS: DEXTROSE 5%-0.45% NS 1,000 ML 100 ML IV (03:38)
[2019-10-09 04:54] LABS: Add Manual Diff / Slide Review NO; Basophils Absolute Auto 0 /uL (0-100); Basophils Percent Auto 0.4 % (0-2); Eosinophils Absolute Auto 100 /uL (0-450); Eosinophils Percent Auto 3.3 % (2-4); Hematocrit 27.2 % (36-46); Lymphocytes Absolute Auto 500 /uL (1100-4500); Lymphocytes Percent Auto 13.1 % (25-40); Mean Corpuscular Hemoglobin 29.7 PG (26-34); Monocytes Absolute Auto 500 /uL (0-900); Monocytes Percent Auto 12.4 % (3-14); Neutrophils Absolute Auto 2900 /uL (1500-7000); Neutrophils Percent Auto 70.8 % (50-75); Platelet Count 55 X10^3/uL (150-400); Red Blood Cell Count 3.02 X10^6/uL (4.0-5.2); Red Cell Distribution Width 14.9 % (11.6-14.8)
[2019-10-09 05:02] LABS: BUN Creatinine Ratio 23.8 (6-22); Blood Urea Nitrogen 20 mg/dL (7-17); Calcium 7.8 mg/dL (8.4-10.2); Carbon Dioxide 22 mmol/L (22-32); Chloride 104 mmol/L (98-107); Estimated Glomerular Filt Rate > 60.0 mL/min (>60); Glucose 114 mg/dL (80-110); HEMOLYSIS < 15 (0-50); Potassium 3.2 mmol/L (3.4-5.1); Sodium 133 mmol/L (137-145)
[2019-10-09] MEDS: PANTOPRAZOLE 20 MG TABLET PO (06:20)
--- NOTE | 2019-10-09 06:50 | PC.NURSE ---
Pt has declined PRN pain medications this shift, AT 0645 Pt had a 60cc emesis of yellow bile, Pt with HX of GERD, Protonix given at 0620, no sign of pill in emesis.
[2019-10-09] MEDS: VANCOMYCIN 750 MG/150 ML FROZ.PIGGY 150 MG IV ×2 (07:59→20:14)
[2019-10-09] MEDS: ENOXAPARIN 40 MG/0.4 ML SYRINGE SUBCUT (08:00)
[2019-10-09] MEDS: terbinafine HCL 250 MG TABLET PO (08:27)
[2019-10-09] MEDS: DOCUSATE 100 MG CAPSULE PO ×2 (08:27→20:14)
--- NOTE | 2019-10-09 09:39 | PM.PN.1 ---
Subjective Subjective Date Patient Seen: 10/09/19 Time Patient Seen: 09:39 Interval history: Patient is a 78-year-old female with a history of hepatocellular carcinoma currently undergoing chemotherapy, hepatitis-C, hypertension, GERD, restless leg syndrome, who has bilateral lower extremity chronic lymphedema who was admitted with right lower extremity cellulitis. She was admitted approximately a month ago with the same issue in [place]. Patient reports improvement in her pain today, although she got up to the bathroom it was still quite painful when ambulating. She denies any fevers, chills, nausea, vomiting, headache, joint pains. Exam Vital Signs (past 8 hours): - 10/09/19 04:29 10/09/19 08:00 10/09/19 08:27 Temperature 97.2 F L 98.2 F Pulse Rate 71 68 Respiratory Rate 20 18 Blood Pressure 120/48 L 108/56 L 108/56 L Pulse Oximetry 96 94 Oxygen Delivery Method Room Air Oxygen Flow Rate 0 Narrative Exam Narrative: GENERAL APPEARANCE: Well developed, well nourished, elderly female in no acute distress. SKIN: Inspection of the skin reveals no ulcerations or petechiae. Bilateral lower extremity venous stasis changes, with mild right-sided erythema, warmth, and tenderness primarily over the calf, but extends from mid calf to mid foot. HEENT: Normocephalic atraumatic, extraocular muscles are intact, oropharynx is clear and mucous membranes are moist, neck is supple without adenopathy NECK: Supple and symmetric. There was no thyroid enlargement, and no tenderness, or masses were felt. CHEST: Normal AP diameter and normal contour without any kyphoscoliosis. LUNGS: Auscultation of the lungs revealed no wheezes, rhonchi, or rales. CARDIOVASCULAR: There was a regular rate and rhythm without any murmurs, gallops, rubs. Peripheral pulses were 2+ and symmetric. ABDOMEN: Soft and nontender with normal bowel sounds. No ascites was noted. MUSCULOSKELETAL: There was no tenderness or effusions noted. Muscle strength and tone were normal. EXTREMITIES: No cyanosis, clubbing. Bilateral chronic edema, right slightly greater than left, with cellulitic changes and venous stasis changes as noted above. NEUROLOGIC: Alert and oriented x 3. Normal affect. Strength is +5/5 in the Upper Extremities and Lower Extremities Bilaterally. Sensation to touch was normal. Objective Labs Result Diagrams: 10/09/19 04:30 10/09/19 04:30 Labs: Laboratory Results - last 24 hr 10/08/19 10/08/19 10/08/19 10:58 10:58 10:58 WBC 7.2 RBC 3.66 L Hgb 11.0 L Hct 32.8 L MCV 89.5 MCH 29.9 MCHC 33.4 RDW 15.0 H Plt Count 80 L Neut % (Auto) 77.5 H Lymph % (Auto) 9.4 L [place] % (Auto) 10.4 Eos % (Auto) 2.3 Baso % (Auto) 0.4 Neut # (Auto) 5500 Lymph # (Auto) 700 L [place] # (Auto) 700 Eos # (Auto) 200 Baso # (Auto) 0 Sodium 135 L Potassium 3.6 Chloride 102 Carbon Dioxide 27 BUN 23 H Creatinine 1.11 H Estimated GFR 47.4 L BUN/Creatinine Ratio 20.7 Glucose 98 Lactate 1.1 Calcium 8.6 Total Bilirubin 1.4 H AST 30 ALT 19 Alkaline Phosphatase 121 Total Protein 7.0 Albumin 3.7 Globulin 3.3 Albumin/Globulin Ratio 1.1 COVID-19 PCR 10/08/19 10/09/19 10/09/19 14:22 04:30 04:30 WBC 4.0 L RBC 3.02 L Hgb 9.0 L Hct 27.2 L MCV 90.0 MCH 29.7 MCHC 33.0 RDW 14.9 H Plt Count 55 L Neut % (Auto) 70.8 Lymph % (Auto) 13.1 L [place] % (Auto) 12.4 Eos % (Auto) 3.3 Baso % (Auto) 0.4 Neut # (Auto) 2900 Lymph # (Auto) 500 L [place] # (Auto) 500 Eos # (Auto) 100 Baso # (Auto) 0 Sodium 133 L Potassium 3.2 L Chloride 104 Carbon Dioxide 22 BUN 20 H Creatinine 0.84 Estimated GFR > 60.0 BUN/Creatinine Ratio 23.8 H Glucose 114 H Lactate Calcium 7.8 L Total Bilirubin AST ALT Alkaline Phosphatase Total Protein Albumin Globulin Albumin/Globulin Ratio COVID-19 PCR Negative Assessment & Plan Assessment & Plan narrative: Patient is a 78-year-old female with a history of hepatocellular carcinoma currently undergoing chemotherapy, hepatitis-C, hypertension, GERD, restless leg syndrome, who has bilateral lower extremity chronic lymphedema who was admitted with right lower extremity cellulitis. 1. Recurrent right lower extremity cellulitis -patient with chronic lymphedema and recent admission for cellulitis approximately 1 month ago -deformity of the right foot and by her report osteomyelitis likely risk factor, consider MRI depending on improvement. Will try and find records from prior admission. No CRP or ESR since admission will send these. -continue IV antibiotics to include ceftriaxone and vancomycin, -XR of RLE negative for bony changes on admission. -will continue with leg elevation -patient would benefit from going to a lymphedema clinic as an outpatient. -PT eval and treat. 2. Hypertension -continue amlodipine and lisinopril -given patient's weight loss lasix was discontinued on admission, will continue to hold -will discontinue IVF at this time to avoid overload, patient is tolerating a diet. 3. Restless leg syndrome -continue ropinirole and cyclobenzaprine as needed 4. Hepatocellular carcinoma -patient currently undergoing chemotherapy 5. Hepatitis-C 6. Gastroesophageal reflux disease -will continue PPI 7. Severe protein calorie malnutrition -patient reports a 25 lb weight loss during her last hospitalization a month ago. She also notes no appetite. -will ask for dietary consultation Patient lives in [facility] anticipate discharge home. She has canceled her flight from Thursday and is able to stay as long as needed to complete treat Patient will be placed on DVT prophylaxis. Patient's daughter is her surrogate here in [place]. Patient reports she is a full code and will note that her record accordingly
[2019-10-09] MEDS: HYDROCODONE/ACET 5/325 TABLET 1 TAB PO ×2 (11:32→20:21)
[2019-10-09] MEDS: SODIUM CHLORIDE 0.9% 250 ML 21 ML IV (13:43)
[2019-10-09] MEDS: CEFTRIAXONE 1 GM/50 ML FROZ.PIGGY IV (13:44)
--- NOTE | 2019-10-09 13:58 | CM.DANOTE ---
Patient is a 78 year old female who was admitted on 10/08/19 for Cellulitis. Pt has MCR for insurance and her PCP is out of town in [place]. EMR was reviewed. Per MD, pt with current chemo for hepatocellular cancer and admitted for recurrent cellulitis in her leg. On IV-Abx currently with plan to transition to orals at d/c. PT ordered and pending. SW met briefly bedside with pt and explained role and pt confirms that she lives in [facility] at baseline and here visiting her Dtr and had flight back to [place] scheduled for tomorrow that she cancelled. Pt is independent at baseline and denies hx of HH or SNF. Pt's Dtr is available for assist and transport at d/c and possible d/c tomorrow if stable and pending PT eval and recommendations. Plan: SW to follow for likely d/c back to Dtr's house before flying back to [place] with oral abx and SW to follow for PT eval and recommendations to confirm no further d/c planning needs. CAMDEN Weaver Discharge Planning/Care Management CM Discharge Assessment Start: 10/09/19 13:57 Freq: Status: Active Protocol: Document 10/09/19 13:57 BF (Rec: 10/09/19 13:58 BF [id number]) Discharge Planning Assessment Assigned Pump Erector Helper CAMDEN Rueda DPOA/Assigned Designee Name Dtr Advance Directives? No Advance Directives on File No History Provided By Patient,Medical Record Has Patient been admitted in last 30 No days? Prior Living Arrangements Apartment/Condo Household Members none Type of transporation used prior to Drives own vehicle admit Independent with ADL's Yes Is patient alert and oriented? Yes Caregiver for Another No Comment Likely home pending PT eval Barriers to Discharge No Discharge Plan Home Additional Comment Pending PT eval Review Status In Process Please Provide Date Initial DC 10/09/19 Assessment Was Performed Next Review Type Continued Stay Review
--- NOTE | 2019-10-09 15:35 | PT.IIE ---
Current Diagnoses Cellulitis of right lower limb (10/08/19) Surgical History (Last Updated 10/08/19 @ 15:53 by Yu Cohen MD) History of bilateral knee replacement (Acute) History of cholecystectomy (Acute) Medical History (Last Updated 10/08/19 @ 15:53 by Yu Cohen MD) Chronic acquired lymphedema (Acute) Gastroesophageal reflux disease (Acute) Hypertension (Acute) Restless leg syndrome (Acute) Physical Therapy Inpatient Evaluation/Re-Eval M1 PT/OT-IP Prior Functional Status Start: 10/09/19 12:48 Freq: NEEDED Status: Active Protocol: Document 10/09/19 15:17 AW (Rec: 10/09/19 15:34 AW [id number]) Medical Review Prior Functional Status Medical History Reviewed Yes Communication WNL. Pt tends to repeat herself but she is oriented and speech is appropriate. Mobility and Gait Independent without use of assistive device Activities of Daily Living and IADL's Independent Prior Functional Level (Other details) Pt fell and broke her wrist two years ago but denies any other history of falls. Social History Household Members none Living Arrangements Apartment/Condo Number of Floors (Floors) One Floor Number of Stairs To Enter/Railing? level entrance Home Environment Standard Height Toilet,Tub/ Shower Home Equipment Front Wheel Walker,Straight Cane,Tub Transfer Bench,Grab Bars In Shower Additional Social History Comment Pt lives alone is [place], [place]. 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 Pt is in [employer] [place] visiting her daughter who works in dietary services at this hospital. She also has a supportive grandson in [place]. Pt has been here nearly two weeks and was planning to return tomorrow but has canceled her plane ticket. M2 PT-IP Current Condition Start: 10/09/19 12:48 Freq: NEEDED Status: Active Protocol: Document 10/09/19 15:17 AW (Rec: 10/09/19 15:34 AW [id number]) Physical Therapy Current Condition Current Condition Evaluation Date 10/09/19 Treatment Diagnosis RLE cellulitis; difficulty in walking Onset Date 10/07/19 M3 PT-IP Subjective Start: 10/09/19 12:48 Freq: NEEDED Status: Active Protocol: Document 10/09/19 15:17 AW (Rec: 10/09/19 15:34 AW [id number]) Subjective Physical Therapy Visit Type Type Initial Evaluation Visit Start Time 14:05 Visit Stop Time 14:32 Total Visit Minutes 27 Physical Therapy Visit Comments Patient Comments Pt is willing to participate with PT Patient Goals To go back to [facility] Pain Assessment Pain When Pain Assessed At Rest Pain Present Pain Present Pain Reported Location Right Lower Leg Intensity 4 Scale Used Numeric (0 - 10) Pain Management Techniques Elevation,Re-positioning, Timing of Activity with Medications M4 PT-IP Mobility and Gait Start: 10/09/19 12:48 Freq: NEEDED Status: Active Protocol: Document 10/09/19 15:17 AW (Rec: 10/09/19 15:34 AW [id number]) PT-Bed Mobility Assessment Supine to Sit Supine to Sit Standby Assistance Scooting Scooting to Edge of Bed Standby Assistance Scooting Up and Down in Bed Standby Assistance PT-Transfer Assessment Sit to and From Stand Sit to and from Stand Standby Assistance,1 Person Assistance,Use of Upper Extremities Equipment Transfer Assistive Device Gait Belt,Front Wheeled Walker Orthotic/Prosthetic Devices or Brace: No Transfers Transfer Destination Chair Transfer Technique pt ambulated with FWW Transfer Ability Level of Assist Contact Guard Assistance,1 Person Assistance,Use of Upper Extremities Comments Mobility Comments Pt was reclined in the bed when PT arrived. She was able to lift both legs for removal of pillows and then to complete supine to sit from flat bed SBA. She complained of increased RLE pain with the leg in dependent position but was able to scoot to EOB and complete sit to stand SBA with FWW. She was steady in initial standing and initiated ambulation with FWW smoothly. She was able to stand without UE support to don her face mask before ambulating in the halls. She ambulated ~100' with FWW SBA and increased time with no observed LOB. On return to the room, her daughter and grandson arrived to visit. She transferred to the chair SBA but needing cues to keep herself square to the walker until ready to sit and CGA due to poor control of descent. Pt was positioned in the chair with chair alarm armed, call light and all needs in reach. Gait Assessment Gait Gait Assistance Required: Standby Assistance Distance (Feet) 100 Able to Maintain Weight Bearing Status Yes During Gait Assistive Devices Assistive Device Gait Belt,Front Wheeled Walker Orthotic/Prosthetic Devices or Brace: No Gait Deviations General Gait Pattern Antalgic,Decreased Stride Length,Decreased Feet Clearance,Flexed Trunk,Step-to Gait Factors Limiting Gait Function Factors Limiting Gait Function Decreased Activity Tolerance, Decreased Sensation,Decreased Strength,Pain,Poor Balance Comments Gait Comments See mobility comments for details. Stair Climbing Assessment Comments Stair Climbing Comments Not assessed. No stairs at home. PT-Balance Assessment Sitting Balance and Reactions Static Sitting Balance Ability Normal Standing Balance and Reactions Static Standing Balance Ability Good Dynamic Standing Balance Ability Good Device Used FWW M5 PT-IP Objective Assessments Start: 10/09/19 12:48 Freq: NEEDED Status: Active Protocol: Document 10/09/19 15:17 AW (Rec: 10/09/19 15:34 AW [id number]) Orientation Orientation/Cognition Level of Alertness Alert Orientation Name,Day of Week,Place, Situation Language Function Ability No Deficits Noted Safety Awareness Decreased Safety Awareness Memory Description No Deficits Noted Gross Range of Motion Upper Extremity ROM Assessment Within Functional Limits Lower Extremity ROM Assessment Bilaterally Impaired Impairments lacking ankle DF to neutral bilaterally Strength Lower Extremity Strength Assessment Bilaterally Impaired Hip 4-/5 Knee 4-/5 Ankle 3/5 Coordination Assessment Gross Coordination Gross Coordination WNL Sensation Assessment Sensation Gross Sensation Right LE Impaired,Left LE Impaired Muscle Tone Muscle Tone WNL Yes M6 PT-IP Treatment Start: 10/09/19 12:48 Freq: NEEDED Status: Active Protocol: Document 10/09/19 15:17 AW (Rec: 10/09/19 15:34 AW [id number]) Physical Therapy Treatment Exercises Exercises Ankle Pumps Education Education Provided Safety Other Treatments Other Treatment Performed Provided education on role of PT, plan of care, and rationale for selection of an assistive device. M7 PT-IP Assessment and Plan Start: 10/09/19 12:48 Freq: NEEDED Status: Active Protocol: Document 10/09/19 15:17 AW (Rec: 10/09/19 15:34 AW [id number]) PT Summary Assessment and Plan Potential Rehabilitation Potential Good Status of Condition at Evaluation Stable Summary Impairments Pain,ROM,Strength,Balance, Sensation,Bed Mobility, Transfers,Gait,Activity Tolerance Assessment Summary Viji is a 78 yo woman seen for PT evaluation with diagnosis of RLE cellulitis. She has history of hepatocellular carcinoma and is currently undergoing chemo. She lives alone in [place], [place] and is independent at baseline. On evaluation, pt required SBA to CGA with all mobilities using FWW due to LE pain and reduced activity tolerance. She is likely to discharge to her daughter's home in [place] once medically stable and then fly back to [place]. PT anticipates this pt will be safe to discharge to her daughter's home once medically cleared. Goals Bed Mobility Goal Independent Transfer Goal Independent,Front Wheeled Walker Gait Goal Independent,Front Wheel Walker Gait Distance 200 Frequency of Treatment Frequency Of Treatment Once a Day Treatment Plan Physical Therapy Treatment Plan Bed Mobility Training,Transfer Training,Gait Training, Therapeutic Exercise,Balance Retraining,Discharge Planning, Hot or Cold Pack Recommendations To Nursing Amount of Assist Needed Standby Assistance,1 Person Assist Discharge Recommendations PT Discharge Recommendations Home with Assistance Transportation Needs at Discharge Private Vehicle
[2019-10-09] MEDS: MELATONIN 3 MG TABLET 9 MG PO (20:14)
[2019-10-09] MEDS: ROPINIROLE 1 MG TABLET 2 MG PO (20:16)
[2019-10-09] MEDS: SODIUM CHLORIDE 0.9% FLUSH 10 ML IV (20:16)
[2019-10-10 04:20] VITALS: BP 105/47; PULSE 63; RESP 18; TEMP 36.9; O2SAT 92
[2019-10-10 05:08] LABS: Add Manual Diff / Slide Review NO; Basophils Absolute Auto 0 /uL (0-100); Basophils Percent Auto 0.4 % (0-2); Eosinophils Absolute Auto 200 /uL (0-450); Eosinophils Percent Auto 4.8 % (2-4); Hematocrit 26.2 % (36-46); Hemoglobin 8.8 g/dL (12.0-16.0); Lymphocytes Absolute Auto 500 /uL (1100-4500); Lymphocytes Percent Auto 15.8 % (25-40); Mean Corpuscular HGB Conc 33.5 % (30-36); Mean Corpuscular Hemoglobin 29.9 PG (26-34); Mean Corpuscular Volume 89.2 fL (80-100); Monocytes Absolute Auto 500 /uL (0-900); Monocytes Percent Auto 14.5 % (3-14); Neutrophils Absolute Auto 2200 /uL (1500-7000); Neutrophils Percent Auto 64.5 % (50-75); Platelet Count 72 X10^3/uL (150-400); Red Blood Cell Count 2.94 X10^6/uL (4.0-5.2); Red Cell Distribution Width 14.7 % (11.6-14.8); White Blood Cell Count 3.4 X10^3/uL (4.5-11.0)
[2019-10-10 05:10] LABS: Alanine Aminotransferase 20 IU/L (<35); Albumin 2.7 g/dL (3.5-5.0); Alkaline Phosphatase 111 U/L (38-126); Aspartate Aminotransferase 33 IU/L (14-36); BUN Creatinine Ratio 23.5 (6-22); Bilirubin Total 0.8 mg/dL (0.2-1.3); Bilirubin Unconjugated 0.5 mg/dL (0.0-1.1); Blood Urea Nitrogen 19 mg/dL (7-17); Calcium 7.9 mg/dL (8.4-10.2); Carbon Dioxide 24 mmol/L (22-32); Chloride 104 mmol/L (98-107); Estimated Glomerular Filt Rate > 60.0 mL/min (>60); Globulin 2.7 g/dL (1.7-4.1); Glucose 91 mg/dL (80-110); HEMOLYSIS < 15 (0-50); Magnesium 1.6 mg/dL (1.6-2.3); Potassium 3.6 mmol/L (3.4-5.1); Sodium 132 mmol/L (137-145); Total Protein 5.4 g/dL (6.3-8.2)
[2019-10-10 05:19] LABS: Erythrocyte Sedimentation Rate 50 MM/HR (0-20)
[2019-10-10 05:21] LABS: C-Reactive Protein Quant 12.9 mg/dL (<1.0)
[2019-10-10] MEDS: PANTOPRAZOLE 20 MG TABLET PO (05:57)
[2019-10-10] MEDS: ACETAMINOPHEN 325 MG TABLET 650 MG PO (05:59)
[2019-10-10 08:00] VITALS: BP 116/54; PULSE 68; RESP 18; TEMP 37; O2SAT 97
[2019-10-10] MEDS: VANCOMYCIN 750 MG/150 ML FROZ.PIGGY 150 MG IV ×2 (08:12→20:20)
[2019-10-10] MEDS: SODIUM CHLORIDE 0.9% FLUSH 10 ML IV ×2 (08:13→21:03)
[2019-10-10] MEDS: terbinafine HCL 250 MG TABLET PO (08:37)
[2019-10-10] MEDS: HYDROCODONE/ACET 5/325 TABLET 1 TAB PO (08:38)
[2019-10-10] MEDS: DOCUSATE 100 MG CAPSULE PO ×2 (08:38→21:02)
--- NOTE | 2019-10-10 09:14 | DI.MRI.S_ITS ---
PROCEDURE: MR LOWER LEG RT WO/W CON INDICATIONS: r/o osteo, include lower calf and ankle/forefoot TECHNIQUE: Noncontrast coronal T1 spin echo and STIR, sagittal T1 spin echo with fat saturation and STIR, axial T1 spin echo and T2 fast spin echo with fat saturation. After the administration of contrast, axial/sagittal/coronal T1 spin echo with fat saturation through the right lower leg . COMPARISON: [facility], CR, XR TIBIA FIBULA RT 2V, 10/08/2019, 13:16. FINDINGS: Image quality: Excellent. Bones: No focal osseous edema or enhancement or cortical destruction is seen to suggest active osteomyelitis. There is no acute trabecular bone injury. There is severe hallux valgus. The 2nd toe is located dorsal to the 1st with mild medial angulation. Degenerative changes are seen throughout the foot that are most notable in the sustentaculum mark, which are not well evaluated on this exam. Soft tissues: Diffuse subcutaneous edema is seen throughout the right lower leg extending into the dorsum of the foot. Findings are nonspecific, but may be related to cellulitis in the setting of presumed infection. There is mild fatty infiltration of the lower leg musculature. No definite intramuscular edema or enhancement are seen to suggest infectious involvement. No soft tissue masses are visualized. There is T2 hyperintense signal at the plantar aspect of the foot adjacent to the 2nd metatarsal head that is only included at the inferior margins of the field of view of this exam, and is not well evaluated. Recommend clinical correlation to exclude soft tissue ulcer in this location. IMPRESSION: Subcutaneous edema throughout the right lower leg and foot is nonspecific, but may be secondary to cellulitis. There are no signs of osteomyelitis or necrotizing fasciitis. Focal edema or fluid plantar to the 2nd metatarsal head is only partially imaged on this exam. Recommend clinical correlation to exclude a soft tissue ulcer in this location. Dictated by: Asim Landaverde M.D. on 10/10/2019 at 12:07 Approved by: Asim Landaverde M.D. on 10/10/2019 at 12:21
--- NOTE | 2019-10-10 10:28 | PT.IPTN ---
Current Diagnoses Cellulitis of right lower limb (10/08/19) Physical Therapy Treatment Note M2 PT-IP Current Condition Start: 10/09/19 12:48 Freq: NEEDED Status: Active Protocol: Document 10/09/19 15:17 AW (Rec: 10/09/19 15:34 AW [id number]) Physical Therapy Current Condition Current Condition Evaluation Date 10/09/19 Treatment Diagnosis RLE cellulitis; difficulty in walking Onset Date 10/07/19 M3 PT-IP Subjective Start: 10/09/19 12:48 Freq: NEEDED Status: Active Protocol: Document 10/10/19 10:20 AW (Rec: 10/10/19 10:28 AW [id number]) Subjective Physical Therapy Visit Type Type Treatment Note Visit Start Time 09:52 Visit Stop Time 10:11 Total Visit Minutes 19 Physical Therapy Visit Comments Patient Comments Pt is willing to participate with PT Therapy Pain Assessment Pain When Pain Assessed During Mobility Pain Present Pain Present Pain Reported Location Right Lower Leg Intensity 5 Scale Used Numeric (0 - 10) Pain Management Techniques Elevation,Re-positioning, Timing of Activity with Medications M4 PT-IP Mobility and Gait Start: 10/09/19 12:48 Freq: NEEDED Status: Active Protocol: Document 10/10/19 10:20 AW (Rec: 10/10/19 10:28 AW [id number]) PT-Bed Mobility Assessment Supine to Sit Supine to Sit Standby Assistance Sit to Supine Sit to Supine Contact Guard Assistance Scooting Scooting to Edge of Bed Standby Assistance Scooting Up and Down in Bed Standby Assistance PT-Transfer Assessment Sit to and From Stand Sit to and from Stand Standby Assistance,1 Person Assistance,Use of Upper Extremities Equipment Transfer Assistive Device Gait Belt,Front Wheeled Walker Orthotic/Prosthetic Devices or Brace: No Transfers Transfer Destination Bed Transfer Technique pt ambulated with FWW Transfer Ability Level of Assist Contact Guard Assistance,1 Person Assistance,Use of Upper Extremities Comments Mobility Comments Pt was reclined in the bed as PT arrived. Resting BP was 116 /54 HR 68. With HOB flat, pt sat up on the EOB SBA with some difficulty managing the RLE. She required assist to don socks. Pt then stood using FWW SBA and ambulated around the unit ~200 feet with one standing rest break at 100 feet. She moved with slightly improved gait speed today but continues to use step-to patterning in spite of cues. Pt briefly attempted gait without AD but required CGA and admitted she felt safer and more steady with the FWW. She returned to the room and requested return to bed so she could rest prior to MRI. Pt was left with call light and all needs in reach, bed alarm on for safety. Gait Assessment Gait Gait Assistance Required: Standby Assistance Distance (Feet) 200 Able to Maintain Weight Bearing Status Yes During Gait Assistive Devices Assistive Device Gait Belt,Front Wheeled Walker Orthotic/Prosthetic Devices or Brace: No Gait Deviations General Gait Pattern Antalgic,Decreased Stride Length,Decreased Feet Clearance,Flexed Trunk,Step-to Gait Factors Limiting Gait Function Factors Limiting Gait Function Decreased Activity Tolerance, Decreased Sensation,Decreased Strength,Pain,Poor Balance Comments Gait Comments See mobility comments for details. Stair Climbing Assessment Comments Stair Climbing Comments Not assessed. No stairs at home. PT-Balance Assessment Sitting Balance and Reactions Static Sitting Balance Ability Normal Dynamic Sitting Balance Ability Good Standing Balance and Reactions Static Standing Balance Ability Good Dynamic Standing Balance Ability Good Device Used FWW M5 PT-IP Objective Assessments Start: 10/09/19 12:48 Freq: NEEDED Status: Active Protocol: Document 10/09/19 15:17 AW (Rec: 10/09/19 15:34 AW [id number]) Orientation Orientation/Cognition Level of Alertness Alert Orientation Name,Day of Week,Place, Situation Language Function Ability No Deficits Noted Safety Awareness Decreased Safety Awareness Memory Description No Deficits Noted Gross Range of Motion Upper Extremity ROM Assessment Within Functional Limits Lower Extremity ROM Assessment Bilaterally Impaired Impairments lacking ankle DF to neutral bilaterally Strength Lower Extremity Strength Assessment Bilaterally Impaired Hip 4-/5 Knee 4-/5 Ankle 3/5 Coordination Assessment Gross Coordination Gross Coordination WNL Sensation Assessment Sensation Gross Sensation Right LE Impaired,Left LE Impaired Muscle Tone Muscle Tone WNL Yes M6 PT-IP Treatment Start: 10/09/19 12:48 Freq: NEEDED Status: Active Protocol: Document 10/10/19 10:20 AW (Rec: 10/10/19 10:28 AW [id number]) Physical Therapy Treatment Education Education Provided Safety Other Treatments Other Treatment Performed Continued to advise pt on use of FWW to increase her independence and reduce risk of falls during mobility. Pt was agreeable. M7 PT-IP Assessment and Plan Start: 10/09/19 12:48 Freq: NEEDED Status: Active Protocol: Document 10/10/19 10:20 AW (Rec: 10/10/19 10:28 AW [id number]) PT Summary Assessment and Plan Potential Rehabilitation Potential Good Status of Condition at Evaluation Stable Summary Impairments Pain,ROM,Strength,Balance, Sensation,Bed Mobility, Transfers,Gait,Activity Tolerance Progress Towards Goals Progressing Toward Goals Assessment Summary Viji will undergo MRI of the RLE today. She continues to require SBA for transfers and gait with FWW. PT will continue to follow to progress independent mobility as pt lives alone. Goals Bed Mobility Goal Independent Transfer Goal Independent,Front Wheeled Walker Gait Goal Independent,Front Wheel Walker Gait Distance 200 Frequency of Treatment Frequency Of Treatment Once a Day Treatment Plan Physical Therapy Treatment Plan Bed Mobility Training,Transfer Training,Gait Training, Therapeutic Exercise,Balance Retraining,Discharge Planning, Hot or Cold Pack Other Recommendations and Next Treatment gait with or without FWW/LRAD Focus as tolerated Recommendations To Nursing Amount of Assist Needed Standby Assistance Discharge Recommendations PT Discharge Recommendations Home with Assistance Transportation Needs at Discharge Private Vehicle
[2019-10-10 12:00] VITALS: BP 113/48; PULSE 55; RESP 18; TEMP 36.4; O2SAT 97
--- NOTE | 2019-10-10 12:14 | PM.PN.1 ---
Subjective Subjective Date Patient Seen: 10/10/19 Time Patient Seen: 12:14 Interval history: Patient is a 78-year-old female with a history of hepatocellular carcinoma currently undergoing chemotherapy, hepatitis-C, hypertension, GERD, restless leg syndrome, who has bilateral lower extremity chronic lymphedema who was admitted with right lower extremity cellulitis. She was admitted approximately a month ago with the same issue in [place]. Patient reports improvement in her pain today, although she got up to the bathroom it was still quite painful when ambulating. She denies any fevers, chills, nausea, vomiting, headache, joint pains. ESR and CRP were mildly elevated today, given relative lack improvement will obtain an MRI to look for possible osteomyelitis of her right lower extremity. Exam Vital Signs (past 8 hours): - 10/10/19 04:20 10/10/19 08:00 Temperature 98.4 F 98.6 F Pulse Rate 63 68 Respiratory Rate 18 18 Blood Pressure 105/47 L 116/54 L Pulse Oximetry 92 97 Oxygen Delivery Method Room Air Oxygen Flow Rate 0 Narrative Exam Narrative: GENERAL APPEARANCE: Well developed, well nourished, elderly female in no acute distress. SKIN: Inspection of the skin reveals no ulcerations or petechiae. Bilateral lower extremity venous stasis changes, with mild right-sided erythema, warmth, and tenderness primarily over the calf, but extends from mid calf to mid foot. HEENT: Normocephalic atraumatic, extraocular muscles are intact, oropharynx is clear and mucous membranes are moist, neck is supple without adenopathy NECK: Supple and symmetric. There was no thyroid enlargement, and no tenderness, or masses were felt. CHEST: Normal AP diameter and normal contour without any kyphoscoliosis. LUNGS: Auscultation of the lungs revealed no wheezes, rhonchi, or rales. CARDIOVASCULAR: There was a regular rate and rhythm without any murmurs, gallops, rubs. Peripheral pulses were 2+ and symmetric. ABDOMEN: Soft and nontender with normal bowel sounds. No ascites was noted. MUSCULOSKELETAL: There was no tenderness or effusions noted. Muscle strength and tone were normal. EXTREMITIES: No cyanosis, clubbing. Bilateral chronic edema, right slightly greater than left, with cellulitic changes and venous stasis changes as noted above. NEUROLOGIC: Alert and oriented x 3. Normal affect. Strength is +5/5 in the Upper Extremities and Lower Extremities Bilaterally. Sensation to touch was normal. Objective Labs Result Diagrams: 10/10/19 04:35 10/10/19 04:35 Labs: Laboratory Results - last 24 hr 10/10/19 10/10/19 10/10/19 04:35 04:35 04:35 WBC 3.4 L RBC 2.94 L Hgb 8.8 L Hct 26.2 L MCV 89.2 MCH 29.9 MCHC 33.5 RDW 14.7 Plt Count 72 L Neut % (Auto) 64.5 Lymph % (Auto) 15.8 L [place] % (Auto) 14.5 H Eos % (Auto) 4.8 H Baso % (Auto) 0.4 Neut # (Auto) 2200 Lymph # (Auto) 500 L [place] # (Auto) 500 Eos # (Auto) 200 Baso # (Auto) 0 ESR 50 H Sodium Potassium Chloride Carbon Dioxide BUN Creatinine Estimated GFR BUN/Creatinine Ratio Glucose Calcium Magnesium Total Bilirubin Conjugated Bilirubin Unconjugated Bilirubin AST ALT Alkaline Phosphatase C-Reactive Protein 12.9 H Total Protein Albumin Globulin Albumin/Globulin Ratio 10/10/19 04:35 WBC RBC Hgb Hct MCV MCH MCHC RDW Plt Count Neut % (Auto) Lymph % (Auto) [place] % (Auto) Eos % (Auto) Baso % (Auto) Neut # (Auto) Lymph # (Auto) [place] # (Auto) Eos # (Auto) Baso # (Auto) ESR Sodium 132 L Potassium 3.6 Chloride 104 Carbon Dioxide 24 BUN 19 H Creatinine 0.81 Estimated GFR > 60.0 BUN/Creatinine Ratio 23.5 H Glucose 91 Calcium 7.9 L Magnesium 1.6 Total Bilirubin 0.8 Conjugated Bilirubin 0.0 Unconjugated Bilirubin 0.5 AST 33 ALT 20 Alkaline Phosphatase 111 C-Reactive Protein Total Protein 5.4 L Albumin 2.7 L Globulin 2.7 Albumin/Globulin Ratio 1.0 Assessment & Plan Assessment & Plan narrative: Patient is a 78-year-old female with a history of hepatocellular carcinoma currently undergoing chemotherapy, hepatitis-C, hypertension, GERD, restless leg syndrome, who has bilateral lower extremity chronic lymphedema who was admitted with right lower extremity cellulitis. 1. Recurrent right lower extremity cellulitis -patient with chronic lymphedema and recent admission for cellulitis approximately 1 month ago -deformity of the right foot and by her report osteomyelitis likely risk factor, Minimal improvement in symptoms thus far, ESR and CRP are mildly elevated. Will check MRI to evaluate for possible osteomyelitis. -continue IV antibiotics to include ceftriaxone and vancomycin, -XR of RLE negative for bony changes on admission. -will continue with leg elevation -patient would benefit from going to a lymphedema clinic as an outpatient. -PT eval and treat. 2. Hypertension -continue amlodipine and lisinopril -given patient's weight loss lasix was discontinued on admission, will continue to hold -will discontinue IVF at this time to avoid overload, patient is tolerating a diet. 3. Restless leg syndrome -continue ropinirole and cyclobenzaprine as needed 4. Hepatocellular carcinoma -patient currently undergoing chemotherapy 5. Hepatitis-C 6. Gastroesophageal reflux disease -will continue PPI 7. Severe protein calorie malnutrition -patient reports a 25 lb weight loss during her last hospitalization a month ago. She also notes no appetite. -diesel maintenance electrician consultation Patient lives in [facility] anticipate discharge home. She has canceled her flight from Thursday and is able to stay as long as needed to complete treat Patient will be placed on DVT prophylaxis. Patient's daughter is her surrogate here in [place]. Patient reports she is a full code and will note that her record accordingly
--- NOTE | 2019-10-10 12:17 | DIET.PN ---
Dietary Progress Note Assessment: Ms. Templeton is a 78-year-old female with a history of hepatocellular carcinoma undergoing chemotherapy, hepatitis-C, hypertension, GERD, diverticulitis, restless leg syndrome, who has bilateral lower extremity chronic lymphedema who was admitted with right lower extremity cellulitis. She reports she was admitted approximately a month ago with the same issue in [place] and since then has had a significant reduction in appetite and 25 lb weight loss. She reports loss of taste for the past 3 weeks and difficulty swallowing meats. She does not like oral nutrition supplements, but will drink nutrient rich beverages such as V8 (low sod). She has shortness of breath during our conversation. HT: 170.18cm WT: 72kg UBW: 84kg BMI: 24.8 %change: 14% (1 mo per pt report) Labs: Na: 132 L CRP: 12.9 H MNA: 9 Jim: 21 Nutrition Diagnosis: Acute severe PCM r/t GI complications/pt altered taste aeb energy intake <50% EER x 1 mo, weigh tloss >5% in 1 mo, patient hx hepatocellular carcinoma undergoing chemotherapy, food avoidance/lack of interest in food. Interventions: 1. Reviewed menu with patient. Discussed importance of protein at each meal for healing. 2. Recommended ONS ensure. Patient states she will not drink them. Offered high pro smoothies instead. Will try. 3. Patient voices difficulty swallowing meats. Recommend easy chew meats only. Discussed with patient. 4. Discussed low fiber plan for diverticulitis. Provided list of foods to avoid when inflammation occurs. Diet Order: heart healthy/cardiac EER: 1800 elina (25cal/kg); 94 g Pro (1.3) Monitoring/Evaluations:weight, PO's, ONS acceptance, need for MIDDLE SCHOOL FOOTBALL COACH eval
[2019-10-10] MEDS: CEFTRIAXONE 1 GM/50 ML FROZ.PIGGY IV (14:04)
--- NOTE | 2019-10-10 14:32 | PC.NURSE ---
Patient pleasant, awake and talkative. 1 assist with walker. Poor appetite, patient reports this has been a challenge during her chemotherapy treatment. But she tolerates specific foods and drinks, and denies n/v or abdominal pain. Voiding without difficulty. Completed MRI today. [place] as needed for pain management of cellulitis. Call light within reach. Bed alarm on for safety.
[2019-10-10 15:30] VITALS: BP 128/46; PULSE 70; RESP 19; TEMP 36.4; O2SAT 96
[2019-10-10 19:08] VITALS: BP 117/43; PULSE 78; RESP 18; TEMP 36.8; O2SAT 96
[2019-10-10] MEDS: VANCOMYCIN TROUGH 1 REQUEST MISC (20:08)
[2019-10-10] MEDS: SODIUM CHLORIDE 0.9% 250 ML 21 ML IV (20:23)
[2019-10-10 20:34] LABS: Vancomycin Trough 11.6 ug/mL (10-20)
[2019-10-10] MEDS: ROPINIROLE 1 MG TABLET 2 MG PO (21:02)
[2019-10-10] MEDS: MELATONIN 3 MG TABLET 9 MG PO (21:02)
[2019-10-10 23:45] VITALS: BP 120/61; PULSE 73; RESP 18; TEMP 36.9; O2SAT 94
[2019-10-11] MEDS: BENZOCAINE/MENTHOL 1 LOZ PKT 1 EACH PO (00:33)
[2019-10-11 03:00] VITALS: BP 129/66; PULSE 72; RESP 18; TEMP 36.8; O2SAT 95
[2019-10-11] MEDS: HYDROCODONE/ACET 5/325 TABLET 1 TAB PO ×2 (03:41→11:38)
[2019-10-11 05:40] LABS: Add Manual Diff / Slide Review NO; Basophils Absolute Auto 0 /uL (0-100); Basophils Percent Auto 0.5 % (0-2); Eosinophils Absolute Auto 100 /uL (0-450); Eosinophils Percent Auto 3.8 % (2-4); Hematocrit 26.1 % (36-46); Hemoglobin 8.7 g/dL (12.0-16.0); Lymphocytes Absolute Auto 500 /uL (1100-4500); Mean Corpuscular HGB Conc 33.5 % (30-36); Mean Corpuscular Hemoglobin 29.9 PG (26-34); Mean Corpuscular Volume 89.2 fL (80-100); Monocytes Absolute Auto 500 /uL (0-900); Monocytes Percent Auto 12.8 % (3-14); Neutrophils Absolute Auto 2400 /uL (1500-7000); Neutrophils Percent Auto 68.9 % (50-75); Platelet Count 83 X10^3/uL (150-400); Red Blood Cell Count 2.92 X10^6/uL (4.0-5.2); Red Cell Distribution Width 14.4 % (11.6-14.8); White Blood Cell Count 3.6 X10^3/uL (4.5-11.0)
[2019-10-11 05:49] LABS: Alanine Aminotransferase 23 IU/L (<35); Albumin 2.6 g/dL (3.5-5.0); Albumin Globulin Ratio 0.9 (1.0-2.8); Alkaline Phosphatase 125 U/L (38-126); Aspartate Aminotransferase 39 IU/L (14-36); BUN Creatinine Ratio 20.9 (6-22); Bilirubin Total 0.8 mg/dL (0.2-1.3); Bilirubin Unconjugated 0.5 mg/dL (0.0-1.1); Blood Urea Nitrogen 14 mg/dL (7-17); Carbon Dioxide 23 mmol/L (22-32); Chloride 103 mmol/L (98-107); Estimated Glomerular Filt Rate > 60.0 mL/min (>60); Globulin 2.8 g/dL (1.7-4.1); Glucose 87 mg/dL (80-110); HEMOLYSIS < 15 (0-50); Magnesium 1.6 mg/dL (1.6-2.3); Potassium 3.6 mmol/L (3.4-5.1); Sodium 131 mmol/L (137-145); Total Protein 5.4 g/dL (6.3-8.2)
[2019-10-11] MEDS: PANTOPRAZOLE 20 MG TABLET PO (06:00)
[2019-10-11 07:00] VITALS: BP 105/54; PULSE 60; RESP 15; TEMP 36.4; O2SAT 95
[2019-10-11] MEDS: DOCUSATE 100 MG CAPSULE PO ×2 (09:26→20:56)
[2019-10-11] MEDS: AMLODIPINE 5 MG TABLET 10 MG PO (09:26)
[2019-10-11] MEDS: SODIUM CHLORIDE 0.9% FLUSH 10 ML IV ×2 (09:26→20:57)
[2019-10-11] MEDS: terbinafine HCL 250 MG TABLET PO (09:26)
[2019-10-11] MEDS: VANCOMYCIN 750 MG/150 ML FROZ.PIGGY 150 MG IV ×2 (09:26→19:58)
[2019-10-11] MEDS: lisinopriL 20 MG TABLET PO (09:26)
[2019-10-11 11:00] VITALS: BP 119/53; PULSE 69; RESP 15; TEMP 36.7; O2SAT 95
--- NOTE | 2019-10-11 12:05 | CM.DPC ---
DCP/continued: Reviewed chart. Met with patient this AM during rounds. Patient alert oriented at time of visit. Patient reports that she will be going to her daughter's upon d/c from [facility] then she hopes to return to her residence in [place] when appropriate to do so. Per provider patient will remain hospitalized for 1 more day for IV abx. The plan is for her to d/c home on po abx. Patient denies any d/c planning needs. P: Home with daughter when stable. Possibly tomorrow. CAMDEN Romero
--- NOTE | 2019-10-11 13:16 | PT.IPTN ---
Current Diagnoses Cellulitis of right lower limb (10/08/19) Physical Therapy Treatment Note M2 PT-IP Current Condition Start: 10/09/19 12:48 Freq: NEEDED Status: Active Protocol: Document 10/09/19 15:17 AW (Rec: 10/09/19 15:34 AW [id number]) Physical Therapy Current Condition Current Condition Evaluation Date 10/09/19 Treatment Diagnosis RLE cellulitis; difficulty in walking Onset Date 10/07/19 M3 PT-IP Subjective Start: 10/09/19 12:48 Freq: NEEDED Status: Active Protocol: Document 10/11/19 13:01 CLB (Rec: 10/11/19 13:27 CLB [id number]) Subjective Physical Therapy Visit Type Type Treatment Note Visit Start Time 13:01 Visit Stop Time 13:16 Total Visit Minutes 15 Number of MOTOR INSTALLER Visits 1 Physical Therapy Visit Comments Patient Comments Pt is willing to participate with PT Therapy Pain Assessment Pain When Pain Assessed During Mobility Pain Present Pain Present Pain Reported Location Right Lower Leg Intensity 4 Scale Used Numeric (0 - 10) Pain Management Techniques Elevation,Re-positioning, Timing of Activity with Medications M4 PT-IP Mobility and Gait Start: 10/09/19 12:48 Freq: NEEDED Status: Active Protocol: Document 10/11/19 13:01 CLB (Rec: 10/11/19 13:27 CLB [id number]) PT-Bed Mobility Assessment Supine to Sit Supine to Sit Standby Assistance Sit to Supine Sit to Supine Standby Assistance Scooting Scooting to Edge of Bed Standby Assistance Scooting Up and Down in Bed Standby Assistance PT-Transfer Assessment Sit to and From Stand Sit to and from Stand Standby Assistance,1 Person Assistance,Use of Upper Extremities Equipment Transfer Assistive Device Gait Belt,Front Wheeled Walker Orthotic/Prosthetic Devices or Brace: No Transfers Transfer Destination Bed Transfer Technique pt ambulated with FWW Transfer Ability Level of Assist Standby Assistance,1 Person Assistance,Use of Upper Extremities Comments Mobility Comments Pt required SBA for supine to sit and assist to laura slippers for ambulation. Pt stood SBA and ambulated w/FWW SBA ~200ft. Pt returned to room returning to supine SBA and was able to scoot over and up in bed SBA. Pt left in bed with alarm on and call light within reach. Gait Assessment Gait Gait Assistance Required: Standby Assistance Distance (Feet) 200 Able to Maintain Weight Bearing Status Yes During Gait Assistive Devices Assistive Device Gait Belt,Front Wheeled Walker Gait Deviations General Gait Pattern Antalgic,Decreased Stride Length,Decreased Feet Clearance,Flexed Trunk,Step-to Gait Factors Limiting Gait Function Factors Limiting Gait Function Decreased Activity Tolerance, Decreased Sensation,Decreased Strength,Pain Comments Gait Comments See mobility comments for details. Stair Climbing Assessment Comments Stair Climbing Comments Not assessed. No stairs at home. M5 PT-IP Objective Assessments Start: 10/09/19 12:48 Freq: NEEDED Status: Active Protocol: Document 10/09/19 15:17 AW (Rec: 10/09/19 15:34 AW [id number]) Orientation Orientation/Cognition Level of Alertness Alert Orientation Name,Day of Week,Place, Situation Language Function Ability No Deficits Noted Safety Awareness Decreased Safety Awareness Memory Description No Deficits Noted Gross Range of Motion Upper Extremity ROM Assessment Within Functional Limits Lower Extremity ROM Assessment Bilaterally Impaired Impairments lacking ankle DF to neutral bilaterally Strength Lower Extremity Strength Assessment Bilaterally Impaired Hip 4-/5 Knee 4-/5 Ankle 3/5 Coordination Assessment Gross Coordination Gross Coordination WNL Sensation Assessment Sensation Gross Sensation Right LE Impaired,Left LE Impaired Muscle Tone Muscle Tone WNL Yes M6 PT-IP Treatment Start: 10/09/19 12:48 Freq: NEEDED Status: Active Protocol: Document 10/10/19 10:20 AW (Rec: 10/10/19 10:28 AW [id number]) Physical Therapy Treatment Education Education Provided Safety Other Treatments Other Treatment Performed Continued to advise pt on use of FWW to increase her independence and reduce risk of falls during mobility. Pt was agreeable. M7 PT-IP Assessment and Plan Start: 10/09/19 12:48 Freq: NEEDED Status: Active Protocol: Document 10/11/19 13:01 CLB (Rec: 10/11/19 13:27 CLB [id number]) PT Summary Assessment and Plan Summary Impairments Pain,ROM,Strength,Balance, Sensation,Bed Mobility, Transfers,Gait,Activity Tolerance Progress Towards Goals Progressing Toward Goals Assessment Summary Pt is SBA for all mobility. Pt ambulated with FWW with good steady gait and good safety awareness. Pt c/o increased pain after 100ft of gait. Goals Bed Mobility Goal Independent Transfer Goal Independent,Front Wheeled Walker Gait Goal Independent,Front Wheel Walker Gait Distance 200 Frequency of Treatment Frequency Of Treatment Once a Day Treatment Plan Physical Therapy Treatment Plan Bed Mobility Training,Transfer Training,Gait Training, Therapeutic Exercise,Balance Retraining,Discharge Planning, Hot or Cold Pack Other Recommendations and Next Treatment gait with or without FWW/LRAD Focus as tolerated Recommendations To Nursing Amount of Assist Needed Standby Assistance Discharge Recommendations PT Discharge Recommendations Home with Assistance Transportation Needs at Discharge Private Vehicle
[2019-10-11] MEDS: CEFTRIAXONE 1 GM/50 ML FROZ.PIGGY IV (13:42)
--- NOTE | 2019-10-11 14:31 | PM.PN.1 ---
Subjective Subjective Date Patient Seen: 10/11/19 Time Patient Seen: 14:31 Interval history: Patient is a 78-year-old female with a history of hepatocellular carcinoma currently undergoing chemotherapy, hepatitis-C, hypertension, GERD, restless leg syndrome, who has bilateral lower extremity chronic lymphedema who was admitted with right lower extremity cellulitis. She was admitted approximately a month ago with the same issue in [place]. Patient reports improvement in her pain today, although she got up to the bathroom it was still quite painful when ambulating. She denies any fevers, chills, nausea, vomiting, headache, joint pains. ESR and CRP were mildly elevated today given relative lack improvement MRI was to look for possible osteomyelitis of her right lower extremity which was thankfully negative. She was up ambulating with assistance today with her walker. Exam Vital Signs (past 8 hours): - 10/11/19 07:00 10/11/19 11:00 Temperature 97.6 F 98.1 F Pulse Rate 60 69 Respiratory Rate 15 15 Blood Pressure 105/54 L 119/53 L Pulse Oximetry 95 95 Oxygen Delivery Method Room Air Oxygen Flow Rate 0 Narrative Exam Narrative: GENERAL APPEARANCE: Well developed, well nourished, elderly female in no acute distress. SKIN: Inspection of the skin reveals no ulcerations or petechiae. Bilateral lower extremity venous stasis changes, with improved right-sided erythema, warmth, and tenderness primarily over the calf now. HEENT: Normocephalic atraumatic, extraocular muscles are intact, oropharynx is clear and mucous membranes are moist, neck is supple without adenopathy NECK: Supple and symmetric. There was no thyroid enlargement, and no tenderness, or masses were felt. CHEST: Normal AP diameter and normal contour without any kyphoscoliosis. LUNGS: Auscultation of the lungs revealed no wheezes, rhonchi, or rales. CARDIOVASCULAR: There was a regular rate and rhythm without any murmurs, gallops, rubs. Peripheral pulses were 2+ and symmetric. ABDOMEN: Soft and nontender with normal bowel sounds. No ascites was noted. MUSCULOSKELETAL: There was no tenderness or effusions noted. Muscle strength and tone were normal. EXTREMITIES: No cyanosis, clubbing. Bilateral chronic edema, right slightly greater than left, with cellulitic changes and venous stasis changes as noted above. NEUROLOGIC: Alert and oriented x 3. Normal affect. Strength is +5/5 in the Upper Extremities and Lower Extremities Bilaterally. Sensation to touch was normal. Objective Labs Result Diagrams: 10/11/19 04:50 10/11/19 04:50 Labs: Laboratory Results - last 24 hr 10/10/19 10/11/19 10/11/19 19:56 04:50 04:50 WBC 3.6 L RBC 2.92 L Hgb 8.7 L Hct 26.1 L MCV 89.2 MCH 29.9 MCHC 33.5 RDW 14.4 Plt Count 83 L Neut % (Auto) 68.9 Lymph % (Auto) 14.0 L [place] % (Auto) 12.8 Eos % (Auto) 3.8 Baso % (Auto) 0.5 Neut # (Auto) 2400 Lymph # (Auto) 500 L [place] # (Auto) 500 Eos # (Auto) 100 Baso # (Auto) 0 Sodium 131 L Potassium 3.6 Chloride 103 Carbon Dioxide 23 BUN 14 Creatinine 0.67 Estimated GFR > 60.0 BUN/Creatinine Ratio 20.9 Glucose 87 Calcium 8.0 L Magnesium 1.6 Total Bilirubin 0.8 Conjugated Bilirubin 0.0 Unconjugated Bilirubin 0.5 AST 39 H ALT 23 Alkaline Phosphatase 125 Total Protein 5.4 L Albumin 2.6 L Globulin 2.8 Albumin/Globulin Ratio 0.9 L Vancomycin Trough 11.6 Assessment & Plan Assessment & Plan narrative: Patient is a 78-year-old female with a history of hepatocellular carcinoma currently undergoing chemotherapy, hepatitis-C, hypertension, GERD, restless leg syndrome, who has bilateral lower extremity chronic lymphedema who was admitted with right lower extremity cellulitis. 1. Recurrent right lower extremity cellulitis -patient with chronic lymphedema and recent admission for cellulitis approximately 1 month ago -deformity of the right foot and by her report osteomyelitis likely risk factor, Minimal improvement in symptoms thus far, ESR and CRP are mildly elevated. MRI was ultimately negative for osteomyelitis. -continue IV antibiotics to include ceftriaxone and vancomycin, -XR of RLE negative for bony changes on admission. -will continue with leg elevation -patient would benefit from going to a lymphedema clinic as an outpatient. -Continue PT and pain control. 2. Hypertension -continue amlodipine and lisinopril -given patient's weight loss lasix was discontinued on admission, will continue to hold -discontinued IVF to avoid overload, patient is tolerating a diet. 3. Restless leg syndrome -continue ropinirole and cyclobenzaprine as needed 4. Hepatocellular carcinoma -patient currently undergoing chemotherapy 5. Hepatitis-C - follows with provider in [place] for HCC as noted above. 6. Gastroesophageal reflux disease -will continue PPI 7. Severe protein calorie malnutrition -patient reports a 25 lb weight loss during her last hospitalization a month ago. She also notes no appetite. -mechanical service specialist consultation Patient lives in [facility] anticipate discharge home. She has canceled her flight from Thursday and is able to stay as long as needed to complete treat. Anticipate discharge home tomorrow if her current progress continues once pain from cellulitis is improved. Patient will be placed on DVT prophylaxis. Patient's daughter is her surrogate here in [place]. Patient reports she is a full code. COVID-19 COVID-19 status: Negative
[2019-10-11 15:15] VITALS: BP 111/46; PULSE 65; RESP 17; TEMP 36.4; O2SAT 97
[2019-10-11] MEDS: CODEINE/GUAIFENESIN LIQUID 5ML UDC 10 ML PO (17:26)
[2019-10-11 19:00] VITALS: BP 130/58; PULSE 67; RESP 18; TEMP 36.6; O2SAT 98
[2019-10-11] MEDS: ROPINIROLE 1 MG TABLET 2 MG PO (20:56)
[2019-10-11] MEDS: MELATONIN 3 MG TABLET 9 MG PO (20:56)
[2019-10-12 00:11] VITALS: BP 126/61; PULSE 76; RESP 20; TEMP 36.2; O2SAT 96
[2019-10-12 03:58] VITALS: BP 112/58; PULSE 72; RESP 16; TEMP 35.8; O2SAT 96
[2019-10-12] MEDS: CODEINE/GUAIFENESIN LIQUID 5ML UDC 10 ML PO (05:14)
[2019-10-12 05:28] LABS: Add Manual Diff / Slide Review NO; Basophils Absolute Auto 0 /uL (0-100); Basophils Percent Auto 0.6 % (0-2); Eosinophils Absolute Auto 200 /uL (0-450); Eosinophils Percent Auto 4.3 % (2-4); Hematocrit 27.6 % (36-46); Hemoglobin 9.3 g/dL (12.0-16.0); Lymphocytes Absolute Auto 500 /uL (1100-4500); Lymphocytes Percent Auto 15.1 % (25-40); Mean Corpuscular HGB Conc 33.6 % (30-36); Mean Corpuscular Hemoglobin 29.8 PG (26-34); Mean Corpuscular Volume 88.9 fL (80-100); Monocytes Absolute Auto 400 /uL (0-900); Monocytes Percent Auto 12.3 % (3-14); Neutrophils Absolute Auto 2400 /uL (1500-7000); Neutrophils Percent Auto 67.7 % (50-75); Platelet Count 111 X10^3/uL (150-400); Red Blood Cell Count 3.11 X10^6/uL (4.0-5.2); Red Cell Distribution Width 14.5 % (11.6-14.8); White Blood Cell Count 3.6 X10^3/uL (4.5-11.0)
[2019-10-12 05:36] LABS: Alanine Aminotransferase 27 IU/L (<35); Albumin 2.7 g/dL (3.5-5.0); Albumin Globulin Ratio 0.9 (1.0-2.8); Alkaline Phosphatase 141 U/L (38-126); Aspartate Aminotransferase 42 IU/L (14-36); BUN Creatinine Ratio 16.9 (6-22); Bilirubin Total 0.7 mg/dL (0.2-1.3); Bilirubin Unconjugated 0.4 mg/dL (0.0-1.1); Blood Urea Nitrogen 11 mg/dL (7-17); Calcium 8.1 mg/dL (8.4-10.2); Carbon Dioxide 23 mmol/L (22-32); Chloride 102 mmol/L (98-107); Estimated Glomerular Filt Rate > 60.0 mL/min (>60); Globulin 2.9 g/dL (1.7-4.1); Glucose 85 mg/dL (80-110); HEMOLYSIS < 15 (0-50); Magnesium 1.5 mg/dL (1.6-2.3); Potassium 3.8 mmol/L (3.4-5.1); Sodium 132 mmol/L (137-145); Total Protein 5.6 g/dL (6.3-8.2)
[2019-10-12] MEDS: PANTOPRAZOLE 20 MG TABLET PO (06:37)
[2019-10-12 08:00] VITALS: BP 135/60; PULSE 67; RESP 19; TEMP 36.7; O2SAT 94
[2019-10-12] MEDS: VANCOMYCIN 750 MG/150 ML FROZ.PIGGY 150 MG IV (08:07)
[2019-10-12] MEDS: HYDROCODONE/ACET 5/325 TABLET 1 TAB PO ×2 (08:07→12:39)
[2019-10-12] MEDS: DOCUSATE 100 MG CAPSULE PO (08:10)
[2019-10-12] MEDS: AMLODIPINE 5 MG TABLET 10 MG PO (08:10)
[2019-10-12] MEDS: terbinafine HCL 250 MG TABLET PO (08:10)
[2019-10-12] MEDS: lisinopriL 20 MG TABLET PO (08:10)
[2019-10-12] MEDS: MAGNESIUM SULFATE 2 GM/50 ML PIGGYBACK IV (08:11)
[2019-10-12] MEDS: SODIUM CHLORIDE 0.9% FLUSH 10 ML IV (08:14)
--- NOTE | 2019-10-12 08:29 | PM.DS.1 ---
History of Present Illness History of Present Illness Date Patient Seen: 10/12/19 Time Patient Seen: 08:29 Chief complaint: CELLULITIS IN LEG Narrative: As per Dr. Cohen, Patient is a 78-year-old female with a history of hepatocellular carcinoma currently undergoing chemotherapy, hepatitis-C, hypertension, GERD, restless leg syndrome, who has bilateral lower extremity chronic lymphedema. Patient reports she was hospitalized in [facility] where she lives 1 month ago for 1 week for right lower extremity cellulitis. She was doing well until 3 days ago when she developed redness swelling warmth of the right lower extremity. She was seen in the emergency room last night in given 1 dose of IV ceftriaxone. It was recommended that the patient be admitted to the hospital last evening however she was planning to return to [place] on Thursday and went home with oral antibiotics. She noted that the right leg is more swollen painful and red. She is unable to ambulate on the right lower extremity. She presented back to the emergency room for re-evaluation. In the emergency room the patient had a Doppler last evening which was negative for DVT. She had an x-ray this evening to rule out osteomyelitis. She was given a dose of ceftriaxone and vancomycin and admitted to the hospital for further evaluation. Patient denies any fever but reports chills. She has had no nausea or vomiting. She does report a 25 lb weight loss which occurred when she was hospitalized month ago. She says she has no appetite but notes her mouth is dry. In addition she denies any shortness of breath chest pain or fevers. She has no diarrhea. No nausea or vomiting. Discharge Providers Provider Date of admission: 10/08/19 14:25 Discharge Date: 10/12/19 Consults: 10/08/19 15:59 Consult to Dietitian, Adult Routine Comment: Reason For Exam: 25 pound weight loss, no appetite, HCC 10/08/19 17:01 Consult to Dietitian, Adult Routine Comment: Reason For Exam: no appetite, weight loss 10/09/19 09:40 Consult to Physical Therapy Evaluate & Treat Comment: Physician Instructions: Evaluate and Treat Discharge provider: Denny Cornelius DO Summary Hospital Course Discharge Diagnosis: 1. Recurrent right lower extremity cellulitis, recurrent, present on admission, improved 2. Hypertension, chronic 3. Restless leg syndrome, chronic 4. Hepatocellular carcinoma, chronic 5. Hepatitis-C, chronic 6. Gastroesophageal reflux disease, chronic 7. Severe protein calorie malnutrition, acute, present on admission Hospital Course: Patient is a 78-year-old female, [place] resident, with a history of hepatocellular carcinoma currently undergoing chemotherapy, hepatitis-C, hypertension, GERD, restless leg syndrome, who has bilateral lower extremity chronic lymphedema who was admitted with right lower extremity cellulitis. She initially showed slow improvement with elevated inflammatory markers on ceftriaxone and vancomycin. An MRI was obtained to evaluate for the possibility of osteomyelitis given recurrent disease and slow improvement with antibiotics. MRI was negative for osteomyelitis or myositis and just showed cellulitis. Her symptoms ultimately improved and on the day of discharge she had minimal warmth and tenderness of her right lower extremity. She is ambulatory with a walker. She was discharged home with 2 additional weeks of antibiotics (bactrim) given recurrence and slow improvement, as well as some pain medications. I do recommend that she follow-up with the lymphedema clinic in [place] when she returns home. Time Spent with Patient Time spent: Less than 30 minutes Exam Vital Signs (past 8 hours): - 10/12/19 03:58 10/12/19 08:00 Temperature 96.5 F L 98.1 F Pulse Rate 72 67 Respiratory Rate 16 19 Blood Pressure 112/58 L 135/60 Pulse Oximetry 96 94 Oxygen Delivery Method Room Air Oxygen Flow Rate 0 Narrative Exam Narrative: GENERAL APPEARANCE: Well developed, well nourished, elderly female in no acute distress. SKIN: Inspection of the skin reveals no ulcerations or petechiae. Bilateral lower extremity venous stasis changes, with very mild erythema and warmth on R compared to L, much improved. HEENT: Normocephalic atraumatic, extraocular muscles are intact, oropharynx is clear and mucous membranes are moist, neck is supple without adenopathy NECK: Supple and symmetric. There was no thyroid enlargement, and no tenderness, or masses were felt. CHEST: Normal AP diameter and normal contour without any kyphoscoliosis. LUNGS: Auscultation of the lungs revealed no wheezes, rhonchi, or rales. CARDIOVASCULAR: There was a regular rate and rhythm without any murmurs, gallops, rubs. Peripheral pulses were 2+ and symmetric. ABDOMEN: Soft and nontender with normal bowel sounds. No ascites was noted. MUSCULOSKELETAL: There was no tenderness or effusions noted. Muscle strength and tone were normal. EXTREMITIES: No cyanosis, clubbing. Bilateral chronic edema, right slightly greater than left, with much improved cellulitic changes and venous stasis changes as noted above. NEUROLOGIC: Alert and oriented x 3. Normal affect. Strength is +5/5 in the Upper Extremities and Lower Extremities Bilaterally. Sensation to touch was normal. Objective Labs Result Diagrams: 10/12/19 04:40 10/12/19 04:40 Labs: Laboratory Results - last 24 hr 10/12/19 10/12/19 04:40 04:40 WBC 3.6 L RBC 3.11 L Hgb 9.3 L Hct 27.6 L MCV 88.9 MCH 29.8 MCHC 33.6 RDW 14.5 Plt Count 111 L Neut % (Auto) 67.7 Lymph % (Auto) 15.1 L [place] % (Auto) 12.3 Eos % (Auto) 4.3 H Baso % (Auto) 0.6 Neut # (Auto) 2400 Lymph # (Auto) 500 L [place] # (Auto) 400 Eos # (Auto) 200 Baso # (Auto) 0 Sodium 132 L Potassium 3.8 Chloride 102 Carbon Dioxide 23 BUN 11 Creatinine 0.65 Estimated GFR > 60.0 BUN/Creatinine Ratio 16.9 Glucose 85 Calcium 8.1 L Magnesium 1.5 L Total Bilirubin 0.7 Conjugated Bilirubin 0.0 Unconjugated Bilirubin 0.4 AST 42 H ALT 27 Alkaline Phosphatase 141 H Total Protein 5.6 L Albumin 2.7 L Globulin 2.9 Albumin/Globulin Ratio 0.9 L Discharge Plan Discharge Plan Patient Disposition: Home Discharge comment: You were admitted with pain and swelling of your right lower leg. This improved with antibiotics. You should follow up with a lymphedema clinic in [place] if available to try and prevent recurring infections. Discharge orders & Medications Prescriptions: New sulfamethoxazole-trimethoprim [Bactrim DS] 800-160 mg tablet 1 tab PO BID 14 Days Qty: 28 RF: 0 hydrocodone-acetaminophen 5-325 mg tablet 1 tab PO Q6H PRN (Reason: pain) 7 Days Qty: 20 RF: 0 Continued lisinopril 20 mg Tablet 20 mg PO DAILY RF: 0 amlodipine 10 mg Tablet 10 mg PO DAILY RF: 0 ropinirole 2 mg Tablet 2 mg PO BEDTIME RF: 0 omeprazole 20 mg Capsule,Delayed Release(Dr/Ec) 20 mg PO DAILY RF: 0 furosemide 20 mg Tablet 20 mg PO DAILY RF: 0 cyclobenzaprine 5 mg Tablet 5 mg PO BEDTIME PRN (Reason: Muscle spasms) RF: 0 melatonin 10 mg Tablet 10 mg PO BEDTIME PRN (Reason: Sleep) RF: 0 Discontinued cephalexin 500 mg capsule 500 mg PO QID 10 Days Qty: 40 RF: 0 doxycycline hyclate 100 mg capsule 100 mg PO BID Qty: 20 RF: 0 Diet/Activity/Treatments Diet: Diet as Tolerated Activity: As tolerated Visit Report/Discharge Packet Instructions: DI for Cellulitis -- Adult, Sulfamethoxazole/Trimethoprim (By mouth), Hydrocodone/Acetaminophen (By mouth) Visit Report Forms: Patient Portal/API, Stroke Signs & Symptoms Discharges patient from system. Discharge Date/Time: 10/12/19 14:10
--- NOTE | 2019-10-12 10:28 | PT.IPTN ---
Current Diagnoses Cellulitis of right lower limb (10/08/19) Physical Therapy Treatment Note M2 PT-IP Current Condition Start: 10/09/19 12:48 Freq: NEEDED Status: Active Protocol: Document 10/09/19 15:17 AW (Rec: 10/09/19 15:34 AW [id number]) Physical Therapy Current Condition Current Condition Evaluation Date 10/09/19 Treatment Diagnosis RLE cellulitis; difficulty in walking Onset Date 10/07/19 M3 PT-IP Subjective Start: 10/09/19 12:48 Freq: NEEDED Status: Active Protocol: Document 10/12/19 10:17 HH (Rec: 10/12/19 10:28 HH [id number]) Subjective Physical Therapy Visit Type Type Treatment Note Visit Start Time 09:46 Visit Stop Time 10:00 Total Visit Minutes 14 Number of RUBY DEVELOPER Visits 0 Physical Therapy Visit Comments Patient Comments Im feeling better and i am ready to back to my dtr's home . Therapy Pain Assessment Pain When Pain Assessed During Mobility Pain Present Pain Present Pain Reported Location Right Lower Leg Intensity 4 Scale Used Numeric (0 - 10) Pain Management Techniques Elevation,Re-positioning, Timing of Activity with Medications M4 PT-IP Mobility and Gait Start: 10/09/19 12:48 Freq: NEEDED Status: Active Protocol: Document 10/12/19 10:17 HH (Rec: 10/12/19 10:28 [id number]) PT-Bed Mobility Assessment Supine to Sit Supine to Sit Standby Assistance Sit to Supine Sit to Supine Standby Assistance Scooting Scooting to Edge of Bed Standby Assistance Scooting Up and Down in Bed Standby Assistance PT-Transfer Assessment Sit to and From Stand Sit to and from Stand Standby Assistance,1 Person Assistance,Use of Upper Extremities Equipment Transfer Assistive Device Gait Belt,Front Wheeled Walker Orthotic/Prosthetic Devices or Brace: No Transfers Transfer Destination Bed,Chair Transfer Technique pt ambulated with FWW Transfer Ability Level of Assist Standby Assistance,1 Person Assistance,Use of Upper Extremities Comments Mobility Comments Pt was in bed upon PT arrival. Pt required SBA from OOB activities. She walked from her room to the end [facility] for approx 350 ft with FWW SBA. Pt was very steady and able to completed stair climbing. However, pt was c/o increased pain on RLE and was given a w/c to go back to her room. She was able to step pivot transfer herself from w/c to chair with SBA. Pt rested comfortably with chair alarm activated and call light placed within reach. Gait Assessment Gait Gait Assistance Required: Standby Assistance Distance (Feet) 350 Able to Maintain Weight Bearing Status Yes During Gait Assistive Devices Assistive Device Gait Belt,Front Wheeled Walker Orthotic/Prosthetic Devices or Brace: No Gait Deviations General Gait Pattern Antalgic,Decreased Stride Length,Decreased Feet Clearance,Flexed Trunk,Step-to Gait Factors Limiting Gait Function Factors Limiting Gait Function Decreased Activity Tolerance, Decreased Sensation,Decreased Strength,Pain Comments Gait Comments See mobility comments for details. Stair Climbing Assessment Evaluation Level of Assist On Stairs Minimal Assistance,1 Person Assistance Devices Stair Climbing Assistive Devices Left Railing Technique/Endurance Stair Climbing Direction Ascend and Descend Stair Climbing Technique Step to Step Number of Steps Climbed 3 Stair Climbing Set # Repetitions (reps) 2 Comments Stair Climbing Comments pt's dtr home has 3 [address]. Pt completed R CHIEF INVESTMENT OFFICER and using L railing for 3 steps x 2sets. Pt reported dtr has been helping getting in and out of the house for the past 2 weeks . PT-Balance Assessment Sitting Balance and Reactions Static Sitting Balance Ability Normal Dynamic Sitting Balance Ability Good Standing Balance and Reactions Static Standing Balance Ability Good Dynamic Standing Balance Ability Good Device Used FWW M5 PT-IP Objective Assessments Start: 10/09/19 12:48 Freq: NEEDED Status: Active Protocol: Document 10/09/19 15:17 AW (Rec: 10/09/19 15:34 AW [id number]) Orientation Orientation/Cognition Level of Alertness Alert Orientation Name,Day of Week,Place, Situation Language Function Ability No Deficits Noted Safety Awareness Decreased Safety Awareness Memory Description No Deficits Noted Gross Range of Motion Upper Extremity ROM Assessment Within Functional Limits Lower Extremity ROM Assessment Bilaterally Impaired Impairments lacking ankle DF to neutral bilaterally Strength Lower Extremity Strength Assessment Bilaterally Impaired Hip 4-/5 Knee 4-/5 Ankle 3/5 Coordination Assessment Gross Coordination Gross Coordination WNL Sensation Assessment Sensation Gross Sensation Right LE Impaired,Left LE Impaired Muscle Tone Muscle Tone WNL Yes M6 PT-IP Treatment Start: 10/09/19 12:48 Freq: NEEDED Status: Active Protocol: Document 10/10/19 10:20 AW (Rec: 10/10/19 10:28 AW [id number]) Physical Therapy Treatment Education Education Provided Safety Other Treatments Other Treatment Performed Continued to advise pt on use of FWW to increase her independence and reduce risk of falls during mobility. Pt was agreeable. M7 PT-IP Assessment and Plan Start: 10/09/19 12:48 Freq: NEEDED Status: Active Protocol: Document 10/12/19 10:17 HH (Rec: 10/12/19 10:28 HH [id number]) PT Summary Assessment and Plan Potential Rehabilitation Potential Good Status of Condition at Evaluation Stable Summary Impairments Pain,ROM,Strength,Balance, Sensation,Bed Mobility, Transfers,Gait,Activity Tolerance Progress Towards Goals Safe For Discharge Assessment Summary Pt is SBA for all mobility at this point and completed step climbing with R CHIEF INVESTMENT OFFICER. Pt is safe to d/c home with dtr's assistance for mobiilty standpoint. Frequency of Treatment Frequency Of Treatment Discharge Recommendations To Nursing Amount of Assist Needed Standby Assistance Discharge Recommendations PT Discharge Recommendations Home with Assistance Transportation Needs at Discharge Private Vehicle
--- NOTE | 2019-10-12 12:49 | CM.DPC ---
DCP Discharge Home Per MD, pt is medically stable to d/c home today with Dtr and new pain and abx meds. GET and MD met bedside with pt who states she has had difficulty getting home meds filled while here visiting in [place] as Pharmacy states pt's PCP is out of state in [place]. Patient currently has enough home meds filled and only needs two new meds prescribed by hospitalist. Meds efaxed to [facility] downstairs and SW called and they can fill pt's meds but cannot find pt under her Medicare number. If out of pocket needed then only $30 to fill both meds. GET updated pt bedside and pt agreeable with out of pocket if needed but provided [facility] phone number for SW to call as they are the Medicare company that takes care of everything for me, including transportation back home, and I never have any out of pocket expense or copay for medications. SW called and had to leave a number but suggested to pt when her Dtr arrives to take her Medicare/medication card down to [place] and the pharmacy would be happy to run her insurance card to determine if they can find coverage. GET updated RN and plan is for Dtr to likely arrive bedside around 1400 today to provide transport and help clam picker medications. Plan: Patient to d/c this afternoon via Dtr POV and pt plans to return to [place] in a week. CAMDEN Weaver
== END 2019-10-12 14:10 | disposition home or self-care (01) | DRG 602 ==
LOC: ED 13:53 → AC 10-09 11:02
PROVIDERS: Internal Medicine; Admitting Provider Internal Medicine; Emergency Provider Emergency Medicine; Referring Provider Emergency Medicine; Visit Provider Internal Medicine
DX: L03.115 Cellulitis of right lower limb (principal); E43 Unspecified severe protein-calorie malnutrition; C22.0 Liver cell carcinoma; Z68.31 Body mass index [BMI] 31.0-31.9, adult; B19.20 Unspecified viral hepatitis C without hepatic coma; I10 Essential (primary) hypertension; K21.9 Gastro-esophageal reflux disease without esophagitis; G25.81 Restless legs syndrome; I89.0 Lymphedema, not elsewhere classified; R76.8 Other specified abnormal immunological findings in serum
CPT/HCPCS: 36415; 73590; 73720; 80048; 80053; 80076; 80202; 83605; 83735; 84145; 85025; 85610; 85651; 85730; 86140; 87040; 87635; 93971; 96365; 96366; 96375; 97116; 97161; 99284; J0696; J1170; J1650; J1885; J2270; J2405; J3370